=== PATIENT | male | born 1950 | race Caucasian/White ===

== ENCOUNTER 2019-02-04 18:09 | Emergency (ER) | payer MEDICARE ==
[~2019-02-04] VITALS: Ht 177.8 cm; Wt 97.5 kg
--- NOTE | 2019-02-04 18:58 | RAD ---
PORTABLE CHEST 1V History: Chest pain Comparison: None. Findings: Single view of the chest is submitted. There is no infiltrate, pneumothorax, or effusion. The pericardial cardiac silhouette is within normal limits in size. There is some atherosclerotic calcification near the aortic arch. Impression: 1. No acute radiographic abnormality is identified. Electronically signed by: Keo Watkins MD (02/04/2019 6:56 PM) [facility]
[2019-02-04 19:08] LABS: BASO # 0.1 x10^3/uL (0.0-0.2); BASO % 1 % (0-3); EOS # 0.3 x10^3/uL (0.0-0.7); EOS % 4 % (0-3); HEMATOCRIT 33.7 % (39.0-53.0); HEMOGLOBIN 11.3 g/dL (13.0-17.5); LYMPH # 1.6 x10^3/uL (1.0-4.8); LYMPH % 19 % (24-48); MEAN CORPUSCULAR HEMOGLOBIN 32 pg (25-35); MEAN CORPUSCULAR HGB CONC 34 g/dL (31-37); MEAN CORPUSCULAR VOLUME 96 fL (79-100); MONO # 0.8 x10^3/uL (0.0-1.1); MONO % 9 % (0-9); NEUT # 5.7 x10^3/uL (1.8-7.7); NEUT % 67 % (31-73); PLATELET COUNT 263 x10^3/uL (140-400); RED BLOOD COUNT 3.51 x10^6/uL (4.30-5.70); RED CELL DISTRIBUTION WIDTH 13.5 % (11.5-14.5); WHITE BLOOD COUNT 8.6 x10^3/uL (4.0-11.0)
[2019-02-04 19:16] LABS: PROTHROMBIN TIME PATIENT 12.8 SEC (11.7-14.0)
[2019-02-04 19:19] LABS: CALCIUM 9.1 mg/dL (8.5-10.1); CREATININE 0.9 mg/dL (0.7-1.3); GFR 83.9; POTASSIUM 4.3 mmol/L (3.5-5.1)
[2019-02-04 19:25] LABS: ALBUMIN 3.5 g/dL (3.4-5.0); TOTAL BILIRUBIN 0.4 mg/dL (0.2-1.0); TOTAL PROTEIN 7.1 g/dL (6.4-8.2)
--- NOTE | 2019-02-04 19:58 | PHYS DOC ---
Past Medical History Past Medical History: Anemia, Anxiety, COPD, High Cholesterol, Hypertension Additional Past Medical Histor: schizoaffective disorder, sleep apnea, PTSD, parkinsons Additional Past Surgical Histo: unknown Adult General Chief Complaint Chief Complaint: CHEST PAIN HPI HPI Patient is a 69 year old male resident of care home with dementia and schizophrenia and bed ridden condition presents via EMS because of chest pain. [facility] reported that patient complaining of chest pain while sitting at the dinner. EMS reported patient denied chest pain and patient but looked confused for him even he doesn't know his baseline condition. [facility] staff reported that patient is not alert and oriented usual and only is oriented �1 and did not have change of mental condition today. Patient denies chest pain at arrival to ER and agitated and refused to have evaluation. Review of Systems Review of Systems Unable to obtain Allergies Allergies Allergies Coded Allergies Type Severity Reaction Last Updated Verified No Known Drug Allergies 02/04/19 No Physical Exam Physical Exam Constitutional: Well nourished, mild distress, non-toxic appearance, agitated. [] HENT: Normocephalic, atraumatic. Eyes: PERRLA, EOMI, conjunctiva normal, no discharge. [] Neck: Normal range of motion, no tenderness, supple, no stridor. [] Cardiovascular:Heart rate regular rhythm, no murmur [] Lungs & Thorax: Bilateral breath sounds clear to auscultation [] Abdomen: Bowel sounds normal, soft, no tenderness, no masses, no pulsatile masses. [] Skin: Warm, dry, no erythema, no rash. [] Back: No tenderness, no CVA tenderness. [] Extremities: No tenderness, no cyanosis, no clubbing, ROM intact, no edema. [] Neurologic: Alert and oriented X 1, moves all extremities Psychologic: Unable to evaluate Current Patient Data Vital Signs Vital Signs Date Time Temp Pulse Resp B/P (MAP) Pulse Ox O2 Delivery O2 Flow Rate FiO2 02/04/19 20:11 99 18 175/92 (119) 96 Room Air 02/04/19 18:37 97.9 97.9 Lab Values Laboratory Tests Test 02/04/19 18:58 White Blood Count 8.6 x10^3/uL (4.0-11.0) Red Blood Count 3.51 x10^6/uL (4.30-5.70) L Hemoglobin 11.3 g/dL (13.0-17.5) L Hematocrit 33.7 % (39.0-53.0) L Mean Corpuscular Volume 96 fL (79-100) Mean Corpuscular Hemoglobin 32 pg (25-35) Mean Corpuscular Hemoglobin Concent 34 g/dL (31-37) Red Cell Distribution Width 13.5 % (11.5-14.5) Platelet Count 263 x10^3/uL (140-400) Neutrophils (%) (Auto) 67 % (31-73) Lymphocytes (%) (Auto) 19 % (24-48) L Monocytes (%) (Auto) 9 % (0-9) Eosinophils (%) (Auto) 4 % (0-3) H Basophils (%) (Auto) 1 % (0-3) Neutrophils # (Auto) 5.7 x10^3/uL (1.8-7.7) Lymphocytes # (Auto) 1.6 x10^3/uL (1.0-4.8) Monocytes # (Auto) 0.8 x10^3/uL (0.0-1.1) Eosinophils # (Auto) 0.3 x10^3/uL (0.0-0.7) Basophils # (Auto) 0.1 x10^3/uL (0.0-0.2) Prothrombin Time 12.8 SEC (11.7-14.0) Prothrombin Time INR 1.0 (0.8-1.1) Sodium Level 144 mmol/L (136-145) Potassium Level 4.3 mmol/L (3.5-5.1) Chloride Level 105 mmol/L (98-107) Carbon Dioxide Level 28 mmol/L (21-32) Anion Gap 11 (6-14) Blood Urea Nitrogen 25 mg/dL (8-26) Creatinine 0.9 mg/dL (0.7-1.3) Estimated GFR (Cockcroft-Gault) 83.9 BUN/Creatinine Ratio 28 (6-20) H Glucose Level 117 mg/dL (70-99) H Calcium Level 9.1 mg/dL (8.5-10.1) Magnesium Level 2.0 mg/dL (1.8-2.4) Total Bilirubin 0.4 mg/dL (0.2-1.0) Aspartate Amino Transferase (AST) 15 U/L (15-37) Alanine Aminotransferase (ALT) 8 U/L (16-63) L Alkaline Phosphatase 74 U/L (46-116) Creatine Kinase 96 U/L (39-308) Troponin I Quantitative < 0.017 ng/mL (0.000-0.055) CR-Mhm-D-Type Natriuretic Peptide 41 pg/mL (0-124) Total Protein 7.1 g/dL (6.4-8.2) Albumin 3.5 g/dL (3.4-5.0) Albumin/Globulin Ratio 1.0 (1.0-1.7) Lipase 98 U/L (73-393) Laboratory Tests 02/04/19 18:58 Laboratory Tests 02/04/19 18:58 EKG EKG EKG interpreted by me. EKG at 1835 showed multiple artifact without acute ST and T-wave elevation. Radiology/Procedures Radiology/Procedures [facility] [address] [place] [address] IMAGING REPORT Signed PATIENT: SAMM PHELAN ACCOUNT: [id number] : 1950 LOCATION: ER AGE: 69 SEX: M EXAM STATUS: PRE ER ORD. PHYSICIAN: NE PEÑA MD REASON: CHEST PAIN PROCEDURE: PORTABLE CHEST 1V PORTABLE CHEST 1V History: Chest pain Comparison: None. Findings: Single view of the chest is submitted. There is no infiltrate, pneumothorax, or effusion. The pericardial cardiac silhouette is within normal limits in size. There is some atherosclerotic calcification near the aortic arch. Impression: 1. No acute radiographic abnormality is identified. Electronically signed by: Archana Bowman MD (02/04/2019 6:56 PM) [facility] DICTATED and SIGNED BY: ARCHANA BOWMAN MD DATE: 02/04/191855 Course & Med Decision Making Course & Med Decision Making Pertinent Labs and Imaging studies reviewed. (See chart for details) Evaluation of patient in ER showed 69-year-old bed ridden male patient with d ementia and schizophrenia disorientation brought in by EMS because of episodes of chest pain while eating dinner that resolved after a few minutes. Patient denies chest pain. Patient had limited history and exam because of mental condition. Cardiac enzyme was unremarkable and EKG did not show acute finding. Plan discharge patient care home. Heart score was 3. Patient had elevation of blood pressure because of movement and fighting with the blood pressure cuff but finally had a normal blood pressure while did not moving. Dragon Disclaimer Dragon Disclaimer This electronic medical record was generated, in whole or in part, using a voice recognition dictation system. Departure Departure Impression: Primary Impression: Non-cardiac chest pain Disposition: HOME, SELF-CARE (nursing at 1957) Condition: IMPROVED Referrals: JONH LLOYD MD (PCP) Patient Instructions: Chest Pain (Nonspecific) Additional Instructions: Continue current medication Follow-up with your primary care physician in 2-3 days Return to ER if not getting better The HEART Score for CP Pts HEART Score for Chest Pain: HEART Score for Chest Pain Response (Comments) Value History Slighlty/Non-Suspicious 0 ECG Normal 0 Age > 65 2 Risk Factors 1 or 2 Risk Factors 1 Troponin < Normal Limit 0 Total 3 Risk Factors: Risk Factors: DM, Current or recent (<one month) smoker, HTN, HLP, family history of CAD, obesity. Risk Scores: Score 0 - 3: 2.5% MACE over next 6 weeks - Discharge Home Score 4 - 6: 20.3% MACE over next 6 weeks - Admit for Clinical Observation Score 7 - 10: 72.7% MACE over next 6 weeks - Early Invasive Strategies NE PEÑA MD Feb 04, 2019 19:58
[2019-02-04 20:11] VITALS: BP 175/92
--- NOTE | 2019-02-05 06:57 | EKG ---
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
== END 2019-02-04 21:30 | disposition home or self-care (01) ==
LOC: ER 18:09
DX: R07.89 Other chest pain (principal); R41.0 Disorientation, unspecified; J44.9 Chronic obstructive pulmonary disease, unspecified; E78.00 Pure hypercholesterolemia, unspecified; I10 Essential (primary) hypertension
CPT/HCPCS: 36415; 71045; 80053; 82550; 83690; 83735; 83880; 84484; 85025; 85610; 93005; 99285-25

== ENCOUNTER 2019-04-27 12:42 | Inpatient (IN) | payer MEDICARE ==
[~2019-04-27] VITALS: Ht 177.8 cm; Wt 92.6 kg
--- NOTE | 2019-04-27 12:58 | RAD ---
EXAM: CT HEAD WITHOUT CONTRAST. HISTORY: Code stroke. Weakness. TECHNIQUE: Computed tomography of the head was performed without intravenous contrast. *One or more of the following individualized dose reduction techniques were utilized for this examination: 1. Automated exposure control. 2. Adjustment of the mA and/or kV according to patient size. 3. Use of iterative reconstruction technique. COMPARISON: None. FINDINGS: There is no intracranial hemorrhage. There is a chronic infarct in the left posterior temporal lobe. Another is noted within the anterior limb of the right internal capsule. A third is noted in the right parietal lobe. There is mild to moderate chronic microangiopathic white matter change elsewhere. Prominence of the lateral ventricles and hemispheric sulci indicates moderate atrophy. There is moderate mucosal thickening in the ethmoid air cells. There is a chronic left medial orbital wall blowout fracture. There are changes of bilateral cataract surgery. There is a small amount of fluid in the right mastoid air cells. The calvarium reveals no suspicious lesions. There are atherosclerotic calcifications of the internal carotid and vertebral arteries. IMPRESSION: 1. No intracranial hemorrhage. 2. Multiple chronic infarcts as detailed above. Moderate atrophy. These findings were called to Dr. Pillai by Brad Richards on 04/27/2019 at 12:51 PM. FOR INTERNAL CODING PURPOSES RESULT CODE: (C) Electronically signed by: Martine Richards MD (04/27/2019 12:55 PM) [facility]
[2019-04-27] MEDS ORDERED: IOHEXOL 350 MG/ML 100 ML VIAL. IV ONE (13:15)
[2019-04-27 13:17] LABS: HEMATOCRIT 36.3 % (39.0-53.0); RED BLOOD COUNT 3.84 x10^6/uL (4.30-5.70); RED CELL DISTRIBUTION WIDTH 15.3 % (11.5-14.5); WHITE BLOOD COUNT 5.6 x10^3/uL (4.0-11.0)
[2019-04-27 13:28] LABS: PROTHROMBIN TIME PATIENT 12.8 SEC (11.7-14.0)
[2019-04-27] MEDS ORDERED: fentaNYL PF VIAL 100 MCG/2 ML VIAL IVP ONE (13:30)
--- NOTE | 2019-04-27 13:36 | PHYS DOC ---
Past Medical History Past Medical History: Anemia, Anxiety, COPD, High Cholesterol, Hypertension Additional Past Medical Histor: schizoaffective disorder, sleep apnea, PTSD, parkinsons Additional Past Surgical Histo: unknown Alcohol Use: None Additional Information: UNKNOWN ALCOHOL/DRUG USE Drug Use: None Adult General Chief Complaint Chief Complaint: NEURO SYMPTOMS/DEFICITS [facility] HPI Patient is a 69 year old male patient resident of group home with history of hypertension, dyslipidemia, Parkinson's, schizophrenia and anxiety who presents by EMS with complaining of weakness. prison reported that patient was seen at 1200 and was alert and oriented times 4 like his usual condition and about 12:15 had left-sided weakness and slurred speech. Code stroke was activated at arrival of patient. Patient is a poor historian and complaining of bilateral leg pain. Review of Systems Review of Systems Constitutional: Denies fever or chills [] Eyes: Denies change in visual acuity, redness, or eye pain [] HENT: Denies nasal congestion or sore throat [] Respiratory: Denies cough or shortness of breath [] Cardiovascular: No additional information not addressed in HPI [] GI: Denies abdominal pain, nausea, vomiting, bloody stools or diarrhea [] : Denies dysuria or hematuria [] Musculoskeletal: Denies back pain, reports joint pain [] Integument: Denies rash or skin lesions [] Neurologic: Denies headache, focal weakness or sensory changes [] Endocrine: Denies polyuria or polydipsia [] All other systems were reviewed and found to be within normal limits, except as documented in this note. Current Medications Current Medications Allergies Allergies Allergies Coded Allergies Type Severity Reaction Last Updated Verified No Known Drug Allergies 02/04/19 No Physical Exam Physical Exam Constitutional: Well nourished, mild distress, non-toxic appearance. [] HENT: Normocephalic, atraumatic. Eyes: PERRLA, EOMI, conjunctiva normal, no discharge. [] Neck: Normal range of motion, no tenderness, supple, no stridor. [] Cardiovascular:Heart rate regular rhythm, no murmur [] Lungs & Thorax: Bilateral breath sounds clear to auscultation [] Abdomen: Bowel sounds normal, soft, no tenderness, no masses, no pulsatile masses. [] Skin: Warm, dry, no erythema, no rash. [] Back: No tenderness, no CVA tenderness. [] Extremities: Holding bilateral lower extremity in semi-flexion and refused to extend them. Neurologic: Alert and oriented X 2, NIHS-15 Psychologic: Anxious Current Patient Data Vital Signs Lab Values Laboratory Tests Test 04/27/19 12:56 White Blood Count 5.6 x10^3/uL (4.0-11.0) Red Blood Count 3.84 x10^6/uL (4.30-5.70) L Hemoglobin 12.0 g/dL (13.0-17.5) L Hematocrit 36.3 % (39.0-53.0) L Mean Corpuscular Volume 95 fL (79-100) Mean Corpuscular Hemoglobin 31 pg (25-35) Mean Corpuscular Hemoglobin Concent 33 g/dL (31-37) Red Cell Distribution Width 15.3 % (11.5-14.5) H Platelet Count 222 x10^3/uL (140-400) Prothrombin Time 12.8 SEC (11.7-14.0) Prothrombin Time INR 1.0 (0.8-1.1) Activated Partial Thromboplast Time 32 SEC (24-38) Sodium Level 141 mmol/L (136-145) Potassium Level 3.9 mmol/L (3.5-5.1) Chloride Level 105 mmol/L (98-107) Carbon Dioxide Level 27 mmol/L (21-32) Anion Gap 9 (6-14) Blood Urea Nitrogen 18 mg/dL (8-26) Creatinine 1.1 mg/dL (0.7-1.3) Estimated GFR (Cockcroft-Gault) 66.6 Glucose Level 113 mg/dL (70-99) H Calcium Level 9.0 mg/dL (8.5-10.1) Total Bilirubin 0.2 mg/dL (0.2-1.0) Direct Bilirubin 0.1 mg/dL (0.0-0.2) Aspartate Amino Transferase (AST) 11 U/L (15-37) L Alanine Aminotransferase (ALT) 7 U/L (16-63) L Alkaline Phosphatase 62 U/L (46-116) Creatine Kinase 61 U/L (39-308) WV-Hko-C-Type Natriuretic Peptide 57 pg/mL (0-124) Total Protein 6.3 g/dL (6.4-8.2) L Albumin 3.4 g/dL (3.4-5.0) Laboratory Tests 04/27/19 12:56 Laboratory Tests 04/27/19 12:56 EKG EKG EKG interpreted by me. EKG at 1311 showed normal sinus rhythm at rate of 71, normal DE and QT intervals, no acute ST and T-wave abnormalities. Radiology/Procedures Radiology/Procedures [][facility] [address] [place] [address] IMAGING REPORT Signed PATIENT: SAMM PHELANOUNT: [id number] : 1950 LOCATION: ER AGE: 69 SEX: M EXAM STATUS: PRE ER ORD. PHYSICIAN: NE PEÑA MD REASON: weakness PROCEDURE: CT CODE STROKE HEAD WO EXAM: CT HEAD WITHOUT CONTRAST. HISTORY: Code stroke. Weakness. TECHNIQUE: Computed tomography of the head was performed without intravenous contrast. *One or more of the following individualized dose reduction techniques were utilized for this examination: 1. Automated exposure control. 2. Adjustment of the mA and/or kV according to patient size. 3. Use of iterative reconstruction technique. COMPARISON: None. FINDINGS: There is no intracranial hemorrhage. There is a chronic infarct in the left posterior temporal lobe. Another is noted within the anterior limb of the right internal capsule. A third is noted in the right parietal lobe. There is mild to moderate chronic microangiopathic white matter change elsewhere. Prominence of the lateral ventricles and hemispheric sulci indicates moderate atrophy. There is moderate mucosal thickening in the ethmoid air cells. There is a chronic left medial orbital wall blowout fracture. There are changes of bilateral cataract surgery. There is a small amount of fluid in the right mastoid air cells. The calvarium reveals no suspicious lesions. There are atherosclerotic calcifications of the internal carotid and vertebral arteries. IMPRESSION: 1. No intracranial hemorrhage. 2. Multiple chronic infarcts as detailed above. Moderate atrophy. These findings were called to Dr. Peña by Brad Richards on 04/27/2019 at 12:51 PM. FOR INTERNAL CODING PURPOSES RESULT CODE: (C) Electronically signed by: Martine Richards MD (04/27/2019 12:55 PM) [facility] DICTATED and SIGNED BY: CHAPO RICHARDS MD DATE: 04/27/19 8802 [facility] [address] [place] [address] IMAGING REPORT Signed PATIENT: SAMM PHELANOUNT: [id number] : 1950 LOCATION: ER AGE: 69 SEX: M EXAM STATUS: REG ER ORD. PHYSICIAN: NE PEÑA MD REASON: weakness PROCEDURE: CT ANGIOGRAPHY HEAD AND NECK EXAM: 1. CTA HEAD WITH AND WITHOUT CONTRAST. 2. CTA NECK WITH AND WITHOUT CONTRAST. HISTORY: Weakness, altered mental status. TECHNIQUE: Computed tomographic angiography of the head and neck was performed before and after the intravenous administration of 75 mL Omnipaque 350. Three-dimensional reconstructions were also performed. COMPARISON: Today's head CT. FINDINGS: Angiographic findings: The aortic arch has a typical branching pattern. There is no arch vessel stenosis. Predominately uncalcified plaquing at the left carotid bulb extends to the origin of the left internal carotid artery where it results in 60% stenosis and is also. There is no right common carotid stenosis. There are mild to moderate atherosclerotic calcifications at the right carotid bulb. There is no cervical internal carotid artery stenosis more distally bilaterally. The external carotid systems are patent. Severe stenosis is suspected at the origin of the left vertebral artery versus artifact. There are mild atherosclerotic calcifications along the left distal vertebral artery at the foramen magnum. No other vertebral stenosis is appreciated bilaterally. The basilar artery is relatively small. There are dual supply to both posterior cerebral arteries which are patent. The P1 segments are small and the posterior communicating arteries prominent. There are atherosclerotic calcifications and moderate atherosclerotic irregularity along the left greater than right cavernous internal carotid arteries without significant stenosis. There appears to be a severe stenosis along one of appears to be inferior left M2 segment. There is multifocal mild to moderate atherosclerotic irregularity along the left M3 segments. The right anterior cerebral artery is dominant and the left relatively small. Both appear patent. The anterior communicating artery is not well-visualized. Nonangiographic findings: There is no intracranial hemorrhage. 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 Prominence of the lateral ventricles and hemispheric sulci indicate mild atrophy. There is moderate mucosal thickening in the ethmoid air cells. There are small mucus retention cysts in the left maxillary sinus. There are changes of bilateral cataract surgery. The temporal bones are unremarkable. Bone windows reveal no suspicious lesions. The lung apices demonstrate an uncalcified nodule in the left apex measures 5 mm. There are multiple bilateral pulmonary emboli. The parotid glands and submandibular glands are unremarkable. The thyroid gland demonstrates no suspicious lesions. There are no laryngeal or pharyngeal masses. There are no pathologically enlarged lymph nodes. IMPRESSION: 1. Multiple bilateral pulmonary emboli are partially visualized. 2. Ulcerated uncalcified plaquing results in 60% stenosis at the origin of the left cervical internal carotid artery. 3. Severe stenosis of what appears to be the inferior left M2 segment. This appears chronic rather than acute. There is multifocal mild to moderate atherosclerotic irregularity along the left M3 segments. 4. There appears to be severe stenosis at the origin of the left vertebral artery versus artifact. Both vertebral arteries are patent more distally. 5. 5 mm left apical nodule, indeterminate. This could be followed in one year if there are risk factors. These findings were called to Dr. Peña by Brad Richards on 04/27/2019 at 1:50 PM. PQRS Compliance Statement - Stenosis calculations for CT, MR and conventional angiography are based upon measurement of the distal ICA diameter in accordance with the NASCET methodology. Stenosis calculations for carotid ultrasound studies are derived from validated velocity criteria which are known to correlate with the NASCET methodology. *One or more of the following individualized dose reduction techniques were utilized for this examination: 1. Automated exposure control. 2. Adjustment of the mA and/or kV according to patient size. 3. Use of iterative reconstruction technique. FOR INTERNAL CODING PURPOSES RESULT CODE: (C) Electronically signed by: Martine Richards MD (04/27/2019 2:02 PM) [facility] DICTATED and SIGNED BY: CHAPO RICHARDS MD DATE: 04/27/19 1401 Course & Med Decision Making Course & Med Decision Making Pertinent Labs and Imaging studies reviewed. (See chart for details) Evaluation of patient in ER showed 69-year-old male patient with history of schizophrenia brought in because of left-sided weakness. Patient was able to move his left upper extremity without problem but refused to move his bilateral lower extremity and had NIHS of 15 was not look real deficit. On-call neurologist Dr. Burris was consulted at 1301 and agreed with not giving TPA. CT angio head and neck did not show acute finding in the brain but showed bilateral PE. Patient did not have hypoxia.Patient requiring admission for further evaluation and treatment. Discussed with Dr. Rowe who is in agreement with admission. Discussed findings and plan with patient and family, who acknowledge understanding and agreement. Dragon Disclaimer Dragon Disclaimer This electronic medical record was generated, in whole or in part, using a voice recognition dictation system. Departure Departure Impression: Primary Impression: Bilateral pulmonary embolism Additional Impressions: Bilateral lower extremity pain Schizophrenia Disposition: ADMITTED INPATIENT Admitting Physician: DONOVAN Condition: GUARDED Referrals: JONH LLOYD MD (PCP) NIHSS Stroke Scale NIH Stroke Scale: NIH Stroke Scale Response (Comments) Value Level of Consciousness: 1 Not alert/arousable 1 LOC Questions: 1 Answers one correctly 1 LOC Commands: 2 Perform neither task 2 Best Gaze: 0 Normal 0 Visual: 0 No visual loss 0 Facial Palsy: 0 Normal, symmetrical 0 Motor - Left Arm 0 No drift 0 Motor - Right Arm 0 No drift 0 Motor - Left Leg 3 Limb falls 3 Motor: Right Leg 3 Limb falls 3 Limb Ataxia: 1 One limb 1 Sensory: 0 No loss 0 Best Language: 2 Severe aphasia 2 Dysathria: 2 Severe 2 Extinction and Inattention: 0 Normal 0 Total 15 Critical Care Time Critical care time was 70 minutes exclusive of procedures. Problem Qualifiers Additional Impressions: Schizophrenia Schizophrenia type: unspecified Qualified Codes: F20.9 - Schizophrenia, unspecified NE PEÑA MD Apr 27, 2019 13:36
[2019-04-27 13:39] LABS: ALBUMIN 3.4 g/dL (3.4-5.0); CREATININE 1.1 mg/dL (0.7-1.3); DIRECT BILIRUBIN 0.1 mg/dL (0.0-0.2); GFR 66.6; POTASSIUM 3.9 mmol/L (3.5-5.1); TOTAL BILIRUBIN 0.2 mg/dL (0.2-1.0); TOTAL PROTEIN 6.3 g/dL (6.4-8.2)
[2019-04-27] MEDS ORDERED: CONTRAST GIVEN. MC PRN (13:45)
--- NOTE | 2019-04-27 13:49 | EKG ---
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
--- NOTE | 2019-04-27 14:05 | RAD ---
EXAM: 1. CTA HEAD WITH AND WITHOUT CONTRAST. 2. CTA NECK WITH AND WITHOUT CONTRAST. HISTORY: Weakness, altered mental status. TECHNIQUE: Computed tomographic angiography of the head and neck was performed before and after the intravenous administration of 75 mL Omnipaque 350. Three-dimensional reconstructions were also performed. COMPARISON: Today's head CT. FINDINGS: Angiographic findings: The aortic arch has a typical branching pattern. There is no arch vessel stenosis. Predominately uncalcified plaquing at the left carotid bulb extends to the origin of the left internal carotid artery where it results in 60% stenosis and is also. There is no right common carotid stenosis. There are mild to moderate atherosclerotic calcifications at the right carotid bulb. There is no cervical internal carotid artery stenosis more distally bilaterally. The external carotid systems are patent. Severe stenosis is suspected at the origin of the left vertebral artery versus artifact. There are mild atherosclerotic calcifications along the left distal vertebral artery at the foramen magnum. No other vertebral stenosis is appreciated bilaterally. The basilar artery is relatively small. There are dual supply to both posterior cerebral arteries which are patent. The P1 segments are small and the posterior communicating arteries prominent. There are atherosclerotic calcifications and moderate atherosclerotic irregularity along the left greater than right cavernous internal carotid arteries without significant stenosis. There appears to be a severe stenosis along one of appears to be inferior left M2 segment. There is multifocal mild to moderate atherosclerotic irregularity along the left M3 segments. The right anterior cerebral artery is dominant and the left relatively small. Both appear patent. The anterior communicating artery is not well-visualized. Nonangiographic findings: There is no intracranial hemorrhage. 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 Prominence of the lateral ventricles and hemispheric sulci indicate mild atrophy. There is moderate mucosal thickening in the ethmoid air cells. There are small mucus retention cysts in the left maxillary sinus. There are changes of bilateral cataract surgery. The temporal bones are unremarkable. Bone windows reveal no suspicious lesions. The lung apices demonstrate an uncalcified nodule in the left apex measures 5 mm. There are multiple bilateral pulmonary emboli. The parotid glands and submandibular glands are unremarkable. The thyroid gland demonstrates no suspicious lesions. There are no laryngeal or pharyngeal masses. There are no pathologically enlarged lymph nodes. IMPRESSION: 1. Multiple bilateral pulmonary emboli are partially visualized. 2. Ulcerated uncalcified plaquing results in 60% stenosis at the origin of the left cervical internal carotid artery. 3. Severe stenosis of what appears to be the inferior left M2 segment. This appears chronic rather than acute. There is multifocal mild to moderate atherosclerotic irregularity along the left M3 segments. 4. There appears to be severe stenosis at the origin of the left vertebral artery versus artifact. Both vertebral arteries are patent more distally. 5. 5 mm left apical nodule, indeterminate. This could be followed in one year if there are risk factors. These findings were called to Dr. Pillai by Brad Richards on 04/27/2019 at 1:50 PM. RS Compliance Statement - Stenosis calculations for CT, MR and conventional angiography are based upon measurement of the distal ICA diameter in accordance with the NASCET methodology. Stenosis calculations for carotid ultrasound studies are derived from validated velocity criteria which are known to correlate with the NASCET methodology. *One or more of the following individualized dose reduction techniques were utilized for this examination: 1. Automated exposure control. 2. Adjustment of the mA and/or kV according to patient size. 3. Use of iterative reconstruction technique. FOR INTERNAL CODING PURPOSES RESULT CODE: (C) Electronically signed by: Martine Richards MD (04/27/2019 2:02 PM) [facility]
--- NOTE | 2019-04-27 14:26 | RAD ---
PORTABLE CHEST 1V Clinical Indication: Pulmonary embolus. Comparison: AP chest February 04, 2019. Findings: Atherosclerotic aortic arch. The cardiomediastinal silhouette is normal. Lungs are clear. There is no pneumothorax. No pleural effusion is appreciated. No acute bone abnormality. IMPRESSION: No acute cardiopulmonary process. Electronically signed by: Thomas Crain MD (04/27/2019 2:24 PM) [id number]
[2019-04-27] MEDS ORDERED: ACETAMINOPHEN 500 MG TABLET PO PRN (14:30)
[2019-04-27] MEDS ORDERED: HEPARIN for IV BOLUS 10,000 UNIT/10 ML VIAL. IV PRN (14:30)
[2019-04-27] MEDS ORDERED: ACETAMINOPHEN/CODEINE 300/30MG TABLET. PO PRN (14:30)
[2019-04-27] MEDS ORDERED: MORPHINE SULFATE 2 MG/ML VIAL. IV PRN (14:30)
[2019-04-27] MEDS ORDERED: ANTI-COAG MONITOR BY PHARMACY. MC PRN (14:30)
[2019-04-27] MEDS ORDERED: ONDANSETRON PF 4 MG/2 ML VIAL. IVP PRN (14:30)
[2019-04-27] MEDS ORDERED: HEPARIN for IV BOLUS 10,000 UNIT/10 ML VIAL. IV ONE (15:15)
--- NOTE | 2019-04-27 15:17 | PDOC1 ---
History and Physical Date of Admission Date of Admission DATE: 04/27/19 TIME: 15:07 Identification/Chief Complaint Chief Complaint slurred speech, stroke like sxs, weak left side body Source Source: Caregiver, Chart review, Patient History of Present Illness History of Present Illness HE [facility] and is not [facility] and is alone at ER. Sent by[facility] of stroke like sxs namely slurred speech, left UE and LLE weakness, last seen normal 12:00, arrived ER via EMS 12:15. NEuro consulted,. CT head ok,advised CT angio head neck and that showed maybe an old stroke and some calcification or blockages but with good col;laterals. BUT THERE IS INCIDENTAL MULITIPLE BILATERAL PE. HE claims no hx PE to me, claims not on any blood thinners but im awaiting med list from [facility] IMPRESSION: 1. Multiple bilateral pulmonary emboli are partially visualized. 2. Ulcerated uncalcified plaquing results in 60% stenosis at the origin of the left cervical internal carotid artery. 3. Severe stenosis of what appears to be the inferior left M2 segment. This appears chronic rather than acute. There is multifocal mild to moderate atherosclerotic irregularity along the left M3 segments. 4. There appears to be severe stenosis at the origin of the left vertebral artery versus artifact. Both vertebral arteries are patent more distally. 5. 5 mm left apical nodule, indeterminate. This could be followed in one year if there are risk factors. He did have hypoxia on arrival. HE did not complain of signif SOA,. We are admitting PCU bed, I advsied heparin gtt with echo and pulmo consult and neuro- he is able to move all 4s for me, and seems less slurred,. 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 Past Medical History Past Medical History waiting on home meds to get past medical hx Past Surgical History Past Surgical History: Other (unable to tell me) Family History Family History: Family History Unknown Social History Smoke: No ALCOHOL: none Drugs: None Current Medications Current Medications Current Medications Iohexol (Omnipaque 350 Mg/ml) 75 ml 1X ONCE IV ; Start 04/27/19 at 13:15; Stop 04/27/19 at 13:16; Status DC Fentanyl Citrate (Fentanyl 2ml Vial) 50 mcg 1X ONCE IVP ; Start 04/27/19 at 13:30; Stop 04/27/19 at 13:31; Status DC Info (CONTRAST GIVEN -- Rx MONITORING) 1 each PRN DAILY PRN MC SEE COMMENTS; Start 04/27/19 at 13:45; Stop 04/29/19 at 13:44 Enoxaparin Sodium (Lovenox 100mg Syringe) 100 mg 1X ONCE SQ ; Start 04/27/19 at 14:15; Stop 04/27/19 at 14:17; Status DC Heparin Sodium/ Dextrose 500 ml @ 30.08 mls/ hr CONT PRN IV SEE COMMENTS; Start 04/27/19 at 14:30 Heparin Sodium (Porcine) (Heparin Sodium) 2,800 unit PRN Q6HRS PRN IV FOR UFH LEVEL LESS THAN 0.2; Start 04/27/19 at 14:30 Heparin Sodium (Porcine) (Heparin Sodium) 1,400 unit PRN Q6HRS PRN IV FOR UFH LEVEL 0.2 - 0.29; Start 04/27/19 at 14:30 Acetaminophen (Tylenol) 500 mg PRN Q6HRS PRN PO MILD PAIN / TEMP; Start 04/27/19 at 14:30 Acetaminophen/ Codeine Phosphate (Tylenol #3) 1 tab PRN Q6HRS PRN PO PAIN MILD TO MOD; Start 04/27/19 at 14:30 Ondansetron HCl (Zofran) 4 mg PRN Q6HRS PRN IVP NAUSEA/VOMITING; Start 04/27/19 at 14:30 Morphine Sulfate (Morphine Sulfate) 2 mg PRN Q2HR PRN IV PAIN; Start 04/27/19 at 14:30 Sodium Chloride 1,000 ml @ 75 mls/hr [id number] IV ; Start 04/27/19 at 14:30 Info (Anti-Coagulation Monitoring By Pharmacy) 1 each PRN DAILY PRN MC SEE COMMENTS; Start 04/27/19 at 14:30 Allergies Allergies: Coded Allergies: No Known Drug Allergies (Unverified , 02/04/19) ROS Review of System limited,w eak, confused, but calm Physical Exam General: Alert, Oriented X3, Cooperative, No acute distress HEENT: Atraumatic, PERRLA, EOMI Lungs: Normal air movement, Other (equal air entry, no crackles, wheezing) Heart: S1S2, RRR, no thrills, no rubs, no gallops, no murmurs Cardiovascular: S1, S2 Abdomen: Normal bowel sounds, Soft, No tenderness, No hepatosplenomegaly, No masses Male Genitals Exam: normal genitalia, normal prostate Rectal Exam: not examined PELVIC: Nml ext genitalia Extremities: No clubbing, No cyanosis, No edema, Normal pulses, No tenderness/swelling Skin: No rashes, No breakdown, No significant lesion Neuro: Normal speech, Normal tone, Sensation intact, Cranial nerves 3-12 NL, Reflexes 2+, Other (4/4/ LEFT UE and LLE 3/5, the RT is 5.5) Vitals Vitals Vital Signs Date Time Temp Pulse Resp B/P (MAP) Pulse Ox O2 Delivery O2 Flow Rate FiO2 04/27/19 13:06 97.9 72 19 114/72 (86) 96 Room Air 97.9 Labs Labs Laboratory Tests Test 04/27/19 12:56 White Blood Count 5.6 x10^3/uL (4.0-11.0) Red Blood Count 3.84 x10^6/uL (4.30-5.70) Hemoglobin 12.0 g/dL (13.0-17.5) Hematocrit 36.3 % (39.0-53.0) Mean Corpuscular Volume 95 fL (79-100) Mean Corpuscular Hemoglobin 31 pg (25-35) Mean Corpuscular Hemoglobin Concent 33 g/dL (31-37) Red Cell Distribution Width 15.3 % (11.5-14.5) Platelet Count 222 x10^3/uL (140-400) Prothrombin Time 12.8 SEC (11.7-14.0) Prothromb Time International Ratio 1.0 (0.8-1.1) Activated Partial Thromboplast Time 32 SEC (24-38) Sodium Level 141 mmol/L (136-145) Potassium Level 3.9 mmol/L (3.5-5.1) Chloride Level 105 mmol/L (98-107) Carbon Dioxide Level 27 mmol/L (21-32) Anion Gap 9 (6-14) Blood Urea Nitrogen 18 mg/dL (8-26) Creatinine 1.1 mg/dL (0.7-1.3) Estimated GFR (Cockcroft-Gault) 66.6 Glucose Level 113 mg/dL (70-99) Calcium Level 9.0 mg/dL (8.5-10.1) Total Bilirubin 0.2 mg/dL (0.2-1.0) Direct Bilirubin 0.1 mg/dL (0.0-0.2) Aspartate Amino Transf (AST/SGOT) 11 U/L (15-37) Alanine Aminotransferase (ALT/SGPT) 7 U/L (16-63) Alkaline Phosphatase 62 U/L (46-116) Creatine Kinase 61 U/L (39-308) LR-Dxq-R-Type Natriuretic Peptide 57 pg/mL (0-124) Total Protein 6.3 g/dL (6.4-8.2) Albumin 3.4 g/dL (3.4-5.0) Laboratory Tests Test 04/27/19 12:56 White Blood Count 5.6 x10^3/uL (4.0-11.0) Red Blood Count 3.84 x10^6/uL (4.30-5.70) Hemoglobin 12.0 g/dL (13.0-17.5) Hematocrit 36.3 % (39.0-53.0) Mean Corpuscular Volume 95 fL (79-100) Mean Corpuscular Hemoglobin 31 pg (25-35) Mean Corpuscular Hemoglobin Concent 33 g/dL (31-37) Red Cell Distribution Width 15.3 % (11.5-14.5) Platelet Count 222 x10^3/uL (140-400) Prothrombin Time 12.8 SEC (11.7-14.0) Prothromb Time International Ratio 1.0 (0.8-1.1) Activated Partial Thromboplast Time 32 SEC (24-38) Sodium Level 141 mmol/L (136-145) Potassium Level 3.9 mmol/L (3.5-5.1) Chloride Level 105 mmol/L (98-107) Carbon Dioxide Level 27 mmol/L (21-32) Anion Gap 9 (6-14) Blood Urea Nitrogen 18 mg/dL (8-26) Creatinine 1.1 mg/dL (0.7-1.3) Estimated GFR (Cockcroft-Gault) 66.6 Glucose Level 113 mg/dL (70-99) Calcium Level 9.0 mg/dL (8.5-10.1) Total Bilirubin 0.2 mg/dL (0.2-1.0) Direct Bilirubin 0.1 mg/dL (0.0-0.2) Aspartate Amino Transf (AST/SGOT) 11 U/L (15-37) Alanine Aminotransferase (ALT/SGPT) 7 U/L (16-63) Alkaline Phosphatase 62 U/L (46-116) Creatine Kinase 61 U/L (39-308) NJ-Ibo-J-Type Natriuretic Peptide 57 pg/mL (0-124) Total Protein 6.3 g/dL (6.4-8.2) Albumin 3.4 g/dL (3.4-5.0) VTE Prophylaxis Ordered VTE Prophylaxis Devices: Yes VTE Pharmacological Prophylaxi: Yes Assessment/Plan Assessment/Plan Transient slurred speech Weak left LE > RT LE - NIH 20 at ER MUltiple bilateral PE - new - first episode 60% stenosis left ICA Severe stenosis Left M2, chronic Sever stenosis origin left vertebral Artery vs artifact\ 5 mm apical lung nodule in a non smoker [facility] resident full code PALn: CVC bed heparin gtt Echo Pulmo consult re PE Check venous dopplers r./o DVT NEuro consult 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
[2019-04-27] MEDS: HEPARIN 25,000UTS/500ML PREMIX 500 ML IV PRN (15:32)
[2019-04-27 15:50] VITALS: BP 169/90
--- NOTE | 2019-04-27 15:53 | PDOC2 ---
NEUROLOGY CONSULT Date of Admission Date of Admission DATE: 04/27/19 TIME: 15:45 Reason for Consult Reason for Consult: Weakness Referring Physician Referring Physician: Dr. Rowe Source Source: Chart review, Patient History of Present Illness History of Present Illness The patient is a 69-year-old right-handed male skilled nursing resident who became weak at about noon today. It was thought he had some slurred speech and left- sided weakness. I spoke with Dr. Pillai and we agreed that the symptoms were rather vague and that the patient did not require alteplase. I recommended a CT angiogram which showed incidental multiple pulmonary emboli. The patient does have a diagnosis of Parkinson's. He has no insight into his history. Past Medical History Cardiovascular: HTN, Hyperlipidemia Pulmonary: COPD, Other (sleep apnea) CENTRAL NERVOUS SYSTEM: Other (Parkinson's, dementia) GI: Other (dyspepsia) Heme/Onc: Anemia NOS Psych: Anxiety, Depression, Other (schizoaffective disorder, PTSD, insomnia) Musculoskeletal: Osteoarthritis, Other (right femur aseptic necrosis) Past Surgical History Past Surgical History: No pertinent history Family History Family History: No pertinent hx Social History Social History He says that he is , does not know where he lives, does not use alcohol or tobacco Current Medications Current Medications Current Medications Iohexol (Omnipaque 350 Mg/ml) 75 ml 1X ONCE IV ; Start 04/27/19 at 13:15; Stop 04/27/19 at 13:16; Status DC Fentanyl Citrate (Fentanyl 2ml Vial) 50 mcg 1X ONCE IVP ; Start 04/27/19 at 13:30; Stop 04/27/19 at 13:31; Status DC Info (CONTRAST GIVEN -- Rx MONITORING) 1 each PRN DAILY PRN MC SEE COMMENTS; Start 04/27/19 at 13:45; Stop 04/29/19 at 13:44 Enoxaparin Sodium (Lovenox 100mg Syringe) 100 mg 1X ONCE SQ ; Start 04/27/19 at 14:15; Stop 04/27/19 at 14:17; Status DC Heparin Sodium/ Dextrose 500 ml @ 30.08 mls/ hr CONT PRN IV SEE COMMENTS Last administered on 04/27/19at 15:32; Start 04/27/19 at 14:30 Heparin Sodium (Porcine) (Heparin Sodium) 2,800 unit PRN Q6HRS PRN IV FOR UFH LEVEL LESS THAN 0.2; Start 04/27/19 at 14:30 Heparin Sodium (Porcine) (Heparin Sodium) 1,400 unit PRN Q6HRS PRN IV FOR UFH LEVEL 0.2 - 0.29; Start 04/27/19 at 14:30 Acetaminophen (Tylenol) 500 mg PRN Q6HRS PRN PO MILD PAIN / TEMP; Start at 14:30 Acetaminophen/ Codeine Phosphate (Tylenol #3) 1 tab PRN Q6HRS PRN PO PAIN MILD TO MOD; Start 04/27/19 at 14:30 Ondansetron HCl (Zofran) 4 mg PRN Q6HRS PRN IVP NAUSEA/VOMITING; Start 04/27/19 at 14:30 Morphine Sulfate (Morphine Sulfate) 2 mg PRN Q2HR PRN IV PAIN; Start 04/27/19 at 14:30 Sodium Chloride 1,000 ml @ 75 mls/hr [id number] IV ; Start 04/27/19 at 14:30 Info (Anti-Coagulation Monitoring By Pharmacy) 1 each PRN DAILY PRN MC SEE COMMENTS; Start 04/27/19 at 14:30 Heparin Sodium (Porcine) (Heparin Sodium) 7,500 unit 1X ONCE IV Last administered on 04/27/19at 15:31; Start 04/27/19 at 15:15; Stop 04/27/19 at 15:16; Status DC Allergies Allergies: Coded Allergies: No Known Drug Allergies (Unverified , 02/04/19) ROS Review of System Negative for fever, chills, weight loss, shortness of breath, chest pain, indigestion, hematochezia, melena, and dysuria. Full 14-point review of systems is negative. Physical Exam Physical Examination General: Well-developed, well-nourished white male in no acute distress HEENT: Normocephalic andatraumatic. Tympanic membranes clear.Temporal arteriespulsatile and nontender.Fundoscopic exam unremarkable Neck: Supple without bruit, no meningismus Musculoskeletal: Stability:see neurologic. Gait exam:see neurologic. Tone:see neurologic.Strength:see neurologic. Neurological: Mental Status:intact, orientation, memory, attention span/concentration, language, fund of knowledge: He does not know the date or location, has some trouble with naming and repetition, follow simple commands but not complex. Cranial Nerves:Pupils equal and reactive to light, extraocular movements areintact, visual reyna are full to confrontation. Facial sensation is normal. There is no facial asymmetry. Vestibulo-ocular reflex is intact. Palate elevates and tongue protrudes in midline. All other cranial related problems are negative except as mentioned before.Reflexes:2+ and symmetric with flexor plantar responses. Motor:4/5 strength with normal bulk. There is gegenhalten tone. There is decreased facial expression but no tremor or bradykinesia. Coordination:Finger-nose finger and lbnf-dx-jymn testing are normal. Rapid alternating movements and fine finger movements are intact. Gait:Not tested. Sensory:Normal pinprick, vibration, light touch, proprioception. Vitals VITALS Vital Signs Date Time Temp Pulse Resp B/P (MAP) Pulse Ox O2 Delivery O2 Flow Rate FiO2 04/27/19 13:30 16 Room Air 04/27/19 13:06 97.9 72 114/72 (86) 96 97.9 Labs Labs Laboratory Tests Test 04/27/19 12:56 White Blood Count 5.6 x10^3/uL (4.0-11.0) Red Blood Count 3.84 x10^6/uL (4.30-5.70) Hemoglobin 12.0 g/dL (13.0-17.5) Hematocrit 36.3 % (39.0-53.0) Mean Corpuscular Volume 95 fL (79-100) Mean Corpuscular Hemoglobin 31 pg (25-35) Mean Corpuscular Hemoglobin Concent 33 g/dL (31-37) Red Cell Distribution Width 15.3 % (11.5-14.5) Platelet Count 222 x10^3/uL (140-400) Prothrombin Time 12.8 SEC (11.7-14.0) Prothromb Time International Ratio 1.0 (0.8-1.1) Activated Partial Thromboplast Time 32 SEC (24-38) Sodium Level 141 mmol/L (136-145) Potassium Level 3.9 mmol/L (3.5-5.1) Chloride Level 105 mmol/L (98-107) Carbon Dioxide Level 27 mmol/L (21-32) Anion Gap 9 (6-14) Blood Urea Nitrogen 18 mg/dL (8-26) Creatinine 1.1 mg/dL (0.7-1.3) Estimated GFR (Cockcroft-Gault) 66.6 Glucose Level 113 mg/dL (70-99) Calcium Level 9.0 mg/dL (8.5-10.1) Total Bilirubin 0.2 mg/dL (0.2-1.0) Direct Bilirubin 0.1 mg/dL (0.0-0.2) Aspartate Amino Transf (AST/SGOT) 11 U/L (15-37) Alanine Aminotransferase (ALT/SGPT) 7 U/L (16-63) Alkaline Phosphatase 62 U/L (46-116) Creatine Kinase 61 U/L (39-308) UQ-Btu-Y-Type Natriuretic Peptide 57 pg/mL (0-124) Total Protein 6.3 g/dL (6.4-8.2) Albumin 3.4 g/dL (3.4-5.0) Laboratory Tests Test 04/27/19 12:56 White Blood Count 5.6 x10^3/uL (4.0-11.0) Red Blood Count 3.84 x10^6/uL (4.30-5.70) Hemoglobin 12.0 g/dL (13.0-17.5) Hematocrit 36.3 % (39.0-53.0) Mean Corpuscular Volume 95 fL (79-100) Mean Corpuscular Hemoglobin 31 pg (25-35) Mean Corpuscular Hemoglobin Concent 33 g/dL (31-37) Red Cell Distribution Width 15.3 % (11.5-14.5) Platelet Count 222 x10^3/uL (140-400) Prothrombin Time 12.8 SEC (11.7-14.0) Prothromb Time International Ratio 1.0 (0.8-1.1) Activated Partial Thromboplast Time 32 SEC (24-38) Sodium Level 141 mmol/L (136-145) Potassium Level 3.9 mmol/L (3.5-5.1) Chloride Level 105 mmol/L (98-107) Carbon Dioxide Level 27 mmol/L (21-32) Anion Gap 9 (6-14) Blood Urea Nitrogen 18 mg/dL (8-26) Creatinine 1.1 mg/dL (0.7-1.3) Estimated GFR (Cockcroft-Gault) 66.6 Glucose Level 113 mg/dL (70-99) Calcium Level 9.0 mg/dL (8.5-10.1) Total Bilirubin 0.2 mg/dL (0.2-1.0) Direct Bilirubin 0.1 mg/dL (0.0-0.2) Aspartate Amino Transf (AST/SGOT) 11 U/L (15-37) Alanine Aminotransferase (ALT/SGPT) 7 U/L (16-63) Alkaline Phosphatase 62 U/L (46-116) Creatine Kinase 61 U/L (39-308) NI-Guu-U-Type Natriuretic Peptide 57 pg/mL (0-124) Total Protein 6.3 g/dL (6.4-8.2) Albumin 3.4 g/dL (3.4-5.0) Images Images CT HEAD WITHOUT CONTRAST. HISTORY: Code stroke. Weakness. TECHNIQUE: Computed tomography of the head was performed without intravenous contrast. *One or more of the following individualized dose reduction techniques were utilized for this examination: 1. Automated exposure control. 2. Adjustment of the mA and/or kV according to patient size. 3. Use of iterative reconstruction technique. COMPARISON: None. FINDINGS: There is no intracranial hemorrhage. There is a chronic infarct in the left posterior temporal lobe. Another is noted within the anterior limb of the right internal capsule. A third is noted in the right parietal lobe. There is mild to moderate chronic microangiopathic white matter change elsewhere. Prominence of the lateral ventricles and hemispheric sulci indicates moderate atrophy. There is moderate mucosal thickening in the ethmoid air cells. There is a chronic left medial orbital wall blowout fracture. There are changes of bilateral cataract surgery. There is a small amount of fluid in the right mastoid air cells. The calvarium reveals no suspicious lesions. There are atherosclerotic calcifications of the internal carotid and vertebral arteries. IMPRESSION: 1. No intracranial hemorrhage. 2. Multiple chronic infarcts as detailed above. Moderate atrophy. CTA HEAD WITH AND WITHOUT CONTRAST. 2. CTA NECK WITH AND WITHOUT CONTRAST. HISTORY: Weakness, altered mental status. TECHNIQUE: Computed tomographic angiography of the head and neck was performed before and after the intravenous administration of 75 mL Omnipaque 350. Three-dimensional reconstructions were also performed. COMPARISON: Today's head CT. FINDINGS: Angiographic findings: The aortic arch has a typical branching pattern. There is no arch vessel stenosis. Predominately uncalcified plaquing at the left carotid bulb extends to the origin of the left internal carotid artery where it results in 60% stenosis and is also. There is no right common carotid stenosis. There are mild to moderate atherosclerotic calcifications at the right carotid bulb. There is no cervical internal carotid artery stenosis more distally bilaterally. The external carotid systems are patent. Severe stenosis is suspected at the origin of the left vertebral artery versus artifact. There are mild atherosclerotic calcifications along the left distal vertebral artery at the foramen magnum. No other vertebral stenosis is appreciated bilaterally. The basilar artery is relatively small. There are dual supply to both posterior cerebral arteries which are patent. The P1 segments are small and the posterior communicating arteries prominent. There are atherosclerotic calcifications and moderate atherosclerotic irregularity along the left greater than right cavernous internal carotid arteries without significant stenosis. There appears to be a severe stenosis along one of appears to be inferior left M2 segment. There is multifocal mild to moderate atherosclerotic irregularity along the left M3 segments. The right anterior cerebral artery is dominant and the left relatively small. Both appear patent. The anterior communicating artery is not well-visualized. Nonangiographic findings: There is no intracranial hemorrhage. 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 Prominence of the lateral ventricles and hemispheric sulci indicate mild atrophy. There is moderate mucosal thickening in the ethmoid air cells. There are small mucus retention cysts in the left maxillary sinus. There are changes of bilateral cataract surgery. The temporal bones are unremarkable. Bone windows reveal no suspicious lesions. The lung apices demonstrate an uncalcified nodule in the left apex measures 5 mm. There are multiple bilateral pulmonary emboli. The parotid glands and submandibular glands are unremarkable. The thyroid gland demonstrates no suspicious lesions. There are no laryngeal or pharyngeal masses. There are no pathologically enlarged lymph nodes. IMPRESSION: 1. Multiple bilateral pulmonary emboli are partially visualized. 2. Ulcerated uncalcified plaquing results in 60% stenosis at the origin of the left cervical internal carotid artery. 3. Severe stenosis of what appears to be the inferior left M2 segment. This appears chronic rather than acute. There is multifocal mild to moderate atherosclerotic irregularity along the left M3 segments. 4. There appears to be severe stenosis at the origin of the left vertebral artery versus artifact. Both vertebral arteries are patent more distally. 5. 5 mm left apical nodule, indeterminate. This could be followed in one year if there are risk factors. Assessment/Plan Assessment/Plan Impression: Generalized weakness, I'm really not picking up on anything focal that would show a stroke. Certainly the pulmonary emboli play a role Dementia Diagnosis of Parkinson's disease Multiple psychiatric disorders. Recommendations: Okay for heparin MRI brain on a routine basis, further stroke workup if it shows anything acute. Continue current medications. Thank you for letting me help with the patient's care. MIS GOTTI MD Apr 27, 2019 15:52
[2019-04-27] MEDS ORDERED: POLY2500 PO (16:06)
[2019-04-27] MEDS ORDERED: LISI-130 PO (16:06)
[2019-04-27] MEDS ORDERED: QUET50TA5 PO (16:06)
[2019-04-27] MEDS ORDERED: GABA600T7 PO (16:06)
[2019-04-27] MEDS ORDERED: CARB1TAB5 PO (16:06)
[2019-04-27] MEDS ORDERED: MIRT15TA PO (16:06)
[2019-04-27] MEDS ORDERED: HYDR-3164 PO (16:06)
[2019-04-27] MEDS ORDERED: ACET500T33 PO (16:06)
[2019-04-27] MEDS: IV 1/2 NORMAL SALINE 1,000 ML IV SCH (16:25)
--- NOTE | 2019-04-27 16:34 | RAD ---
EXAM: Bilateral lower extremity venous Doppler. HISTORY: Pulmonary embolism. COMPARISON: Today's chest CT. FINDINGS: Grayscale and Doppler analysis of the both lower extremity deep venous systems was performed with graded compression and augmentation. The common femoral, greater saphenous, superficial femoral, popliteal and calf veins were assessed. There is occlusive thrombus within the right popliteal vein. No other thrombi are seen. The calf veins could not be visualized bilaterally given patient immobility. IMPRESSION: 1. Occlusive thrombus within the right popliteal vein. Dr. Pillai was made aware of deep venous thrombosis at the time of today's prior CT. Electronically signed by: Martine Richards MD (04/27/2019 4:31 PM) [facility]
--- NOTE | 2019-04-27 17:10 | PDOC ---
PULMONARY PROGRESS NOTES Vitals Vital Signs Date Time Temp Pulse Resp B/P (MAP) Pulse Ox O2 Delivery O2 Flow Rate FiO2 04/27/19 15:50 98.0 69 18 169/90 (116) 97 Room Air 98.0 Cardiovascular: S1, S2 Labs Laboratory Tests Test 04/27/19 12:56 White Blood Count 5.6 x10^3/uL (4.0-11.0) Red Blood Count 3.84 x10^6/uL (4.30-5.70) Hemoglobin 12.0 g/dL (13.0-17.5) Hematocrit 36.3 % (39.0-53.0) Mean Corpuscular Volume 95 fL (79-100) Mean Corpuscular Hemoglobin 31 pg (25-35) Mean Corpuscular Hemoglobin Concent 33 g/dL (31-37) Red Cell Distribution Width 15.3 % (11.5-14.5) Platelet Count 222 x10^3/uL (140-400) Prothrombin Time 12.8 SEC (11.7-14.0) Prothromb Time International Ratio 1.0 (0.8-1.1) Activated Partial Thromboplast Time 32 SEC (24-38) Sodium Level 141 mmol/L (136-145) Potassium Level 3.9 mmol/L (3.5-5.1) Chloride Level 105 mmol/L (98-107) Carbon Dioxide Level 27 mmol/L (21-32) Anion Gap 9 (6-14) Blood Urea Nitrogen 18 mg/dL (8-26) Creatinine 1.1 mg/dL (0.7-1.3) Estimated GFR (Cockcroft-Gault) 66.6 Glucose Level 113 mg/dL (70-99) Calcium Level 9.0 mg/dL (8.5-10.1) Total Bilirubin 0.2 mg/dL (0.2-1.0) Direct Bilirubin 0.1 mg/dL (0.0-0.2) Aspartate Amino Transf (AST/SGOT) 11 U/L (15-37) Alanine Aminotransferase (ALT/SGPT) 7 U/L (16-63) Alkaline Phosphatase 62 U/L (46-116) Creatine Kinase 61 U/L (39-308) OT-Jio-K-Type Natriuretic Peptide 57 pg/mL (0-124) Total Protein 6.3 g/dL (6.4-8.2) Albumin 3.4 g/dL (3.4-5.0) Laboratory Tests Test 04/27/19 12:56 White Blood Count 5.6 x10^3/uL (4.0-11.0) Red Blood Count 3.84 x10^6/uL (4.30-5.70) Hemoglobin 12.0 g/dL (13.0-17.5) Hematocrit 36.3 % (39.0-53.0) Mean Corpuscular Volume 95 fL (79-100) Mean Corpuscular Hemoglobin 31 pg (25-35) Mean Corpuscular Hemoglobin Concent 33 g/dL (31-37) Red Cell Distribution Width 15.3 % (11.5-14.5) Platelet Count 222 x10^3/uL (140-400) Prothrombin Time 12.8 SEC (11.7-14.0) Prothromb Time International Ratio 1.0 (0.8-1.1) Activated Partial Thromboplast Time 32 SEC (24-38) Sodium Level 141 mmol/L (136-145) Potassium Level 3.9 mmol/L (3.5-5.1) Chloride Level 105 mmol/L (98-107) Carbon Dioxide Level 27 mmol/L (21-32) Anion Gap 9 (6-14) Blood Urea Nitrogen 18 mg/dL (8-26) Creatinine 1.1 mg/dL (0.7-1.3) Estimated GFR (Cockcroft-Gault) 66.6 Glucose Level 113 mg/dL (70-99) Calcium Level 9.0 mg/dL (8.5-10.1) Total Bilirubin 0.2 mg/dL (0.2-1.0) Direct Bilirubin 0.1 mg/dL (0.0-0.2) Aspartate Amino Transf (AST/SGOT) 11 U/L (15-37) Alanine Aminotransferase (ALT/SGPT) 7 U/L (16-63) Alkaline Phosphatase 62 U/L (46-116) Creatine Kinase 61 U/L (39-308) WN-Ufb-E-Type Natriuretic Peptide 57 pg/mL (0-124) Total Protein 6.3 g/dL (6.4-8.2) Albumin 3.4 g/dL (3.4-5.0) Medications Active Scripts Medications Dose Route/Sig Max Daily Dose Days Date Category Tylenol Extra Strength (Acetaminophen) 500 Mg Tablet 500 Mg PO QID 04/27/19 Reported Sinemet Cr 50-200 Tablet (Carbidopa/Levodopa) 1 Each Tablet.er 1 Tab PO BID 04/27/19 Reported Seroquel (Quetiapine Fumarate) 50 Mg Tablet 5 Tab PO QHS 04/27/19 Reported Remeron (Mirtazapine) 15 Mg Tablet 1 Tab PO QHS 04/27/19 Reported Polyethylene Glycol 3350 2,500 Gm Powder 17 Gm PO BID 04/27/19 Reported Lisinopril 40 Mg Tablet 1 Tab PO BID 04/27/19 Reported [place] 5-325 Tablet (Acetaminophen/Hydrocodone Bitart) 1 Each Tablet 1 Tab PO BID 04/27/19 Reported Gabapentin 600 Mg Tablet 600 Mg PO BID 04/27/19 Reported Impression . NOT DICTATED THANKS AGREE WITH CURRENT RX WILL CHECK A CTA CHEST MARINA MCCLENDON MD Apr 27, 2019 17:10
[2019-04-27] MEDS ORDERED: IV 1/2 NORMAL SALINE 1,000 ML IV ONE (17:15)
[2019-04-27] MEDS: ACETAMINOPHEN 500 MG TABLET PO SCH ×2 (18:43→20:36)
[2019-04-27] MEDS: LISINOPRIL 20 MG TABLET PO SCH ×2 (18:43→20:35)
[2019-04-27 19:20] VITALS: BP 151/73
[2019-04-27] MEDS: QUEtiapine 100 MG TABLET. PO SCH (20:33)
[2019-04-27] MEDS: CARBIDOPA/LEVODOPA CR 25/100MG TABLET.SA. PO SCH (20:33)
[2019-04-27] MEDS: MIRTAZAPINE 15 MG TABLET PO SCH (20:35)
[2019-04-27] MEDS: HYDROcodone/APAP 5/325MG 1 TAB TABLET PO SCH (20:35)
[2019-04-27] MEDS: QUEtiapine 25 MG TABLET. PO SCH (20:36)
[2019-04-27] MEDS: GABAPENTIN 300 MG CAPSULE. PO SCH (20:37)
[2019-04-27] MEDS: POLYETHYLENE GLYCOL 3350 17 GM PACKET. PO SCH (21:00)
[2019-04-27 23:30] VITALS: BP 161/115
--- NOTE | 2019-04-28 01:21 | CONS ---
DATE OF CONSULTATION: 04/27/2019 ATTENDING PHYSICIAN: Dr. Rowe REASON FOR CONSULTATION: The patient is seen in pulmonary consultation at the request of Dr. Rowe for PE. HISTORY OF PRESENT ILLNESS: The patient is a 69-year-old who is a very poor historian. He resides at [facility]. Apparently, there was some documentation of stroke-like symptoms, slurred speech, left upper weakness. The patient was taken to the Emergency Department. CT of the head was performed. There were no acute changes. It was advised that CT angio of the head and neck be performed. There was an incidental finding of bilateral pulmonary emboli as a consequence. I was asked to see him in consultation. He had a lower extremity venous Dopplers, which revealed occlusive thrombus within the right popliteal vein. The patient is currently undergoing IV heparin. The patient himself has dementia. He did know his name. I asked him if he was short of breath today, yes; yesterday, yes; last week, yes. I asked him if he had pain upon deep inspiration, he said no. He could not tell me if he was weak on one side or the other earlier today. PAST MEDICAL HISTORY: Obtained by reviewing the current documentation. Dr. Burris saw him in consult. There is a history of hypertension, hyperlipidemia, COPD, sleep apnea, Parkinson's dementia, dyspepsia, anemia, anxiety, depression, schizoaffective disorder, posttraumatic stress disorder, chronic insomnia, osteoarthritis. PAST SURGICAL HISTORY: As above. FAMILY HISTORY: Unknown. SOCIAL HISTORY: Apparently, he is , lives in [facility]. ALLERGIES: No known drug allergies. CURRENT MEDICATIONS: List was reviewed. PHYSICAL EXAMINATION: GENERAL: The patient did not appear to be in any respiratory distress. He was actually on room air. Respiratory rate was not markedly elevated. HEENT: Eyes: The sclerae were nonicteric. NECK: Jugular venous distention was not elevated. No lymphadenopathy. CHEST: Full expansion. LUNGS: Adequate airway flow with no wheezes. CARDIOVASCULAR: Regular rate and rhythm with S1, S2, no S3. ABDOMEN: Soft, nontender, nondistended. EXTREMITIES: No clubbing, cyanosis or edema. LABORATORY DATA: Reviewed. INR was 1.0. White count was normal. Hemoglobin and hematocrit were noted. BUN and creatinine were normal. Total protein was 6.3. IMPRESSION: 1. Pulmonary embolism. 2. Deep venous thrombosis of right popliteal vein. 3. Hypoxemia upon arrival to the Emergency Department. 4. Multiple other comorbidities as listed above. 5. Hypertension. 6. Chronic obstructive pulmonary disease. 7. Depression. 8. Anemia. 9. Schizoaffective disorder. 10. History of parkinsonism. PLAN: 1. We will proceed with CT angiogram. 2. Continue IV heparin. 3. Follow other consultants' input. I do appreciate the privilege in sharing in the patient's care. MARINA MCCLENDON MD DR: DALIA/radha JOB#: [id number] / [id number]
[2019-04-28 03:10] VITALS: BP 191/80
[2019-04-28] MEDS: cloNIDine HCL 0.2 MG TABLET PO PRN ×2 (03:19→11:50)
[2019-04-28] MEDS: IV 1/2 NORMAL SALINE 1,000 ML IV SCH ×2 (03:50→09:38)
[2019-04-28 03:51] VITALS: BP 159/74
[2019-04-28 07:00] VITALS: BP 105/59
[2019-04-28] MEDS ORDERED: CONTRAST GIVEN. MC PRN (08:45)
[2019-04-28] MEDS ORDERED: IOHEXOL 350 MG/ML 100 ML VIAL. IV ONE (08:45)
[2019-04-28 09:12] LABS: HEMATOCRIT 33.2 % (39.0-53.0); HEMOGLOBIN 10.9 g/dL (13.0-17.5)
--- NOTE | 2019-04-28 09:12 | PDOC ---
PULMONARY PROGRESS NOTES Subjective PT CONFUSED Vitals Vital Signs Date Time Temp Pulse Resp B/P (MAP) Pulse Ox O2 Delivery O2 Flow Rate FiO2 04/28/19 07:00 97.9 65 20 105/59 (74) 93 Room Air 97.9 ROS: No Nausea, No Chest Pain, No Abdominal Pain, No Increase Cough General: Alert Lungs: Clear Cardiovascular: S1, S2 Abdomen: Soft Neuro Exam: Alert Extremities: No Edema Skin: Warm Labs Laboratory Tests Test 04/27/19 12:56 04/27/19 21:45 04/28/19 04:40 White Blood Count 5.6 x10^3/uL (4.0-11.0) Red Blood Count 3.84 x10^6/uL (4.30-5.70) Hemoglobin 12.0 g/dL (13.0-17.5) Hematocrit 36.3 % (39.0-53.0) Mean Corpuscular Volume 95 fL (79-100) Mean Corpuscular Hemoglobin 31 pg (25-35) Mean Corpuscular Hemoglobin Concent 33 g/dL (31-37) Red Cell Distribution Width 15.3 % (11.5-14.5) Platelet Count 222 x10^3/uL (140-400) Prothrombin Time 12.8 SEC (11.7-14.0) Prothromb Time International Ratio 1.0 (0.8-1.1) Activated Partial Thromboplast Time 32 SEC (24-38) Sodium Level 141 mmol/L (136-145) Potassium Level 3.9 mmol/L (3.5-5.1) Chloride Level 105 mmol/L (98-107) Carbon Dioxide Level 27 mmol/L (21-32) Anion Gap 9 (6-14) Blood Urea Nitrogen 18 mg/dL (8-26) Creatinine 1.1 mg/dL (0.7-1.3) Estimated GFR (Cockcroft-Gault) 66.6 Glucose Level 113 mg/dL (70-99) Calcium Level 9.0 mg/dL (8.5-10.1) Total Bilirubin 0.2 mg/dL (0.2-1.0) Direct Bilirubin 0.1 mg/dL (0.0-0.2) Aspartate Amino Transf (AST/SGOT) 11 U/L (15-37) Alanine Aminotransferase (ALT/SGPT) 7 U/L (16-63) Alkaline Phosphatase 62 U/L (46-116) Creatine Kinase 61 U/L (39-308) XB-Row-R-Type Natriuretic Peptide 57 pg/mL (0-124) Total Protein 6.3 g/dL (6.4-8.2) Albumin 3.4 g/dL (3.4-5.0) Heparin Anti-Xa Act, Unfractionated 0.90 IU/mL (0.30-0.70) 0.78 IU/mL (0.30-0.70) Laboratory Tests Test 04/27/19 12:56 04/27/19 21:45 04/28/19 04:40 White Blood Count 5.6 x10^3/uL (4.0-11.0) Red Blood Count 3.84 x10^6/uL (4.30-5.70) Hemoglobin 12.0 g/dL (13.0-17.5) Hematocrit 36.3 % (39.0-53.0) Mean Corpuscular Volume 95 fL (79-100) Mean Corpuscular Hemoglobin 31 pg (25-35) Mean Corpuscular Hemoglobin Concent 33 g/dL (31-37) Red Cell Distribution Width 15.3 % (11.5-14.5) Platelet Count 222 x10^3/uL (140-400) Prothrombin Time 12.8 SEC (11.7-14.0) Prothromb Time International Ratio 1.0 (0.8-1.1) Activated Partial Thromboplast Time 32 SEC (24-38) Sodium Level 141 mmol/L (136-145) Potassium Level 3.9 mmol/L (3.5-5.1) Chloride Level 105 mmol/L (98-107) Carbon Dioxide Level 27 mmol/L (21-32) Anion Gap 9 (6-14) Blood Urea Nitrogen 18 mg/dL (8-26) Creatinine 1.1 mg/dL (0.7-1.3) Estimated GFR (Cockcroft-Gault) 66.6 Glucose Level 113 mg/dL (70-99) Calcium Level 9.0 mg/dL (8.5-10.1) Total Bilirubin 0.2 mg/dL (0.2-1.0) Direct Bilirubin 0.1 mg/dL (0.0-0.2) Aspartate Amino Transf (AST/SGOT) 11 U/L (15-37) Alanine Aminotransferase (ALT/SGPT) 7 U/L (16-63) Alkaline Phosphatase 62 U/L (46-116) Creatine Kinase 61 U/L (39-308) ZI-Dhh-I-Type Natriuretic Peptide 57 pg/mL (0-124) Total Protein 6.3 g/dL (6.4-8.2) Albumin 3.4 g/dL (3.4-5.0) Heparin Anti-Xa Act, Unfractionated 0.90 IU/mL (0.30-0.70) 0.78 IU/mL (0.30-0.70) Medications Active Scripts Medications Dose Route/Sig Max Daily Dose Days Date Category Tylenol Extra Strength (Acetaminophen) 500 Mg Tablet 500 Mg PO QID 04/27/19 Reported Sinemet Cr 50-200 Tablet (Carbidopa/Levodopa) 1 Each Tablet.er 1 Tab PO BID 04/27/19 Reported Seroquel (Quetiapine Fumarate) 50 Mg Tablet 5 Tab PO QHS 04/27/19 Reported Remeron (Mirtazapine) 15 Mg Tablet 1 Tab PO QHS 04/27/19 Reported Polyethylene Glycol 3350 2,500 Gm Powder 17 Gm PO BID 04/27/19 Reported Lisinopril 40 Mg Tablet 1 Tab PO BID 04/27/19 Reported [place] 5-325 Tablet (Acetaminophen/Hydrocodone Bitart) 1 Each Tablet 1 Tab PO BID 04/27/19 Reported Gabapentin 600 Mg Tablet 600 Mg PO BID 04/27/19 Reported Impression . IMPRESSION: 1. Pulmonary embolism. 2. Deep venous thrombosis of right popliteal vein. 3. Hypoxemia upon arrival to the Emergency Department. 4. Multiple other comorbidities as listed above. 5. Hypertension. 6. Chronic obstructive pulmonary disease. 7. Depression. 8. Anemia. 9. Schizoaffective disorder. 10. History of parkinsonism. Plan . CT CHEST REVIEWED D/W DR HUI NUNEZ ANTICOUGULATION MARINA MCCLENDON MD Apr 28, 2019 09:12
[2019-04-28] MEDS: CARBIDOPA/LEVODOPA CR 25/100MG TABLET.SA. PO SCH ×2 (09:25→20:19)
[2019-04-28] MEDS: POLYETHYLENE GLYCOL 3350 17 GM PACKET. PO SCH ×2 (09:26→20:41)
[2019-04-28] MEDS: GABAPENTIN 300 MG CAPSULE. PO SCH ×2 (09:26→20:19)
[2019-04-28] MEDS: ACETAMINOPHEN 500 MG TABLET PO SCH ×4 (09:27→20:28)
[2019-04-28] MEDS: HYDROcodone/APAP 5/325MG 1 TAB TABLET PO SCH ×2 (09:28→20:28)
[2019-04-28] MEDS: LISINOPRIL 20 MG TABLET PO SCH ×2 (09:28→20:22)
--- NOTE | 2019-04-28 09:33 | RAD ---
CTA of the chest. 04/28/2019 Indication: [Shortness of breath. Patient with recurrent DVT. Comparison study: [Lower extremity duplex ultrasound, yesterday] Technique: Multidetector CT imaging of the chest was performed following the administration of intravenous contrast. Multiple reconstructions including 3-D maximum intensity projection reconstructions were created on an independent workstation and reviewed. Findings: Exam is severely limited by poor opacification of pulmonary arteries of IV contrast. There appears to be filling defects within the pulmonary artery supplying the left lower lobe possibly the right lower lobe suggestive of acute pulmonary embolism. Heart size is normal. No pericardial effusion is seen. No pathologically enlarged mediastinal adenopathy. No pneumothorax.Motion artifact limits evaluation of the lung parenchyma. There is a probable noncalcified nodule right middle lobe possibly measuring up to 8 mm in diameter. Motion artifact precludes accurate measurement. No acute osseous changes are identified. Limited visualization of the upper abdomen demonstrates no acute normality. IMPRESSION: 1. Exam is limited, but there appears to be acute pulmonary embolism bilaterally with an artery supplying the lower lobes. 2. Possibly millimeter nodule, right middle lobe. Follow-up CT chest recommended when patient able to breath-hold/clinically feasible. CT DOSING PQRS STATEMENT: One or more of the following individualized dose reduction techniques were utilized for this examination: 1. Automated exposure control 2. Adjustment of the mA and/or kV according to patient size 3. Use of iterative reconstruction technique Electronically signed by: Allen Alvarez MD (04/28/2019 9:30 AM) [id number]
[2019-04-28] MEDS: HEPARIN 25,000UTS/500ML PREMIX 500 ML IV PRN (09:42)
--- NOTE | 2019-04-28 10:58 | PDOC ---
PROGRESS NOTES Assessment Problems Medical Problems: (1) Bilateral lower extremity pain Status: Acute (2) Bilateral pulmonary embolism Status: Acute (3) Schizophrenia Status: Acute Generalized weakness, I'm really not picking up on anything focal that would show a stroke. Certainly the pulmonary emboli play a role Dementia Diagnosis of Parkinson's disease Multiple psychiatric disorders. Plan Await MRI brain Continue current medications. Subjective He denies pain or shortness of breath Objective Vital Signs Date Time Temp Pulse Resp B/P (MAP) Pulse Ox O2 Delivery O2 Flow Rate FiO2 04/28/19 09:28 85 163/76 04/28/19 09:28 93 Room Air 04/28/19 07:00 97.9 20 97.9 Intake and Output 04/28/19 07:00 Intake Total 100 ml Balance 100 ml Intake Oral 100 ml # Voids 4 PHYSICAL EXAM Alert. Oriented to person, he does not know date or location. PERRL. EOMI. CN: no focal findings. Muscle tone: gegenhalten Muscle strength: 4/5 DTR: 2+ Plantar reflex: flexor Gait: not examined in bed. Sensory exam: no abnormal findings. No cerebellar signs elicited. There is decreased facial expression but no tremor or bradykinesia. Review of Relevant I have reviewed the following items luis miguel (where applicable) has been applied. Labs Laboratory Tests Test 04/27/19 12:56 04/27/19 21:45 04/28/19 04:40 White Blood Count 5.6 x10^3/uL (4.0-11.0) Red Blood Count 3.84 x10^6/uL (4.30-5.70) Hemoglobin 12.0 g/dL (13.0-17.5) 10.9 g/dL (13.0-17.5) Hematocrit 36.3 % (39.0-53.0) 33.2 % (39.0-53.0) Mean Corpuscular Volume 95 fL (79-100) Mean Corpuscular Hemoglobin 31 pg (25-35) Mean Corpuscular Hemoglobin Concent 33 g/dL (31-37) 33 g/dL (31-37) Red Cell Distribution Width 15.3 % (11.5-14.5) Platelet Count 222 x10^3/uL (140-400) Prothrombin Time 12.8 SEC (11.7-14.0) Prothromb Time International Ratio 1.0 (0.8-1.1) Activated Partial Thromboplast Time 32 SEC (24-38) Sodium Level 141 mmol/L (136-145) Potassium Level 3.9 mmol/L (3.5-5.1) Chloride Level 105 mmol/L (98-107) Carbon Dioxide Level 27 mmol/L (21-32) Anion Gap 9 (6-14) Blood Urea Nitrogen 18 mg/dL (8-26) Creatinine 1.1 mg/dL (0.7-1.3) Estimated GFR (Cockcroft-Gault) 66.6 Glucose Level 113 mg/dL (70-99) Calcium Level 9.0 mg/dL (8.5-10.1) Total Bilirubin 0.2 mg/dL (0.2-1.0) Direct Bilirubin 0.1 mg/dL (0.0-0.2) Aspartate Amino Transf (AST/SGOT) 11 U/L (15-37) Alanine Aminotransferase (ALT/SGPT) 7 U/L (16-63) Alkaline Phosphatase 62 U/L (46-116) Creatine Kinase 61 U/L (39-308) IB-Hma-X-Type Natriuretic Peptide 57 pg/mL (0-124) Total Protein 6.3 g/dL (6.4-8.2) Albumin 3.4 g/dL (3.4-5.0) Heparin Anti-Xa Act, Unfractionated 0.90 IU/mL (0.30-0.70) 0.78 IU/mL (0.30-0.70) Laboratory Tests Test 04/27/19 12:56 04/27/19 21:45 04/28/19 04:40 White Blood Count 5.6 x10^3/uL (4.0-11.0) Red Blood Count 3.84 x10^6/uL (4.30-5.70) Hemoglobin 12.0 g/dL (13.0-17.5) 10.9 g/dL (13.0-17.5) Hematocrit 36.3 % (39.0-53.0) 33.2 % (39.0-53.0) Mean Corpuscular Volume 95 fL (79-100) Mean Corpuscular Hemoglobin 31 pg (25-35) Mean Corpuscular Hemoglobin Concent 33 g/dL (31-37) 33 g/dL (31-37) Red Cell Distribution Width 15.3 % (11.5-14.5) Platelet Count 222 x10^3/uL (140-400) Prothrombin Time 12.8 SEC (11.7-14.0) Prothromb Time International Ratio 1.0 (0.8-1.1) Activated Partial Thromboplast Time 32 SEC (24-38) Sodium Level 141 mmol/L (136-145) Potassium Level 3.9 mmol/L (3.5-5.1) Chloride Level 105 mmol/L (98-107) Carbon Dioxide Level 27 mmol/L (21-32) Anion Gap 9 (6-14) Blood Urea Nitrogen 18 mg/dL (8-26) Creatinine 1.1 mg/dL (0.7-1.3) Estimated GFR (Cockcroft-Gault) 66.6 Glucose Level 113 mg/dL (70-99) Calcium Level 9.0 mg/dL (8.5-10.1) Total Bilirubin 0.2 mg/dL (0.2-1.0) Direct Bilirubin 0.1 mg/dL (0.0-0.2) Aspartate Amino Transf (AST/SGOT) 11 U/L (15-37) Alanine Aminotransferase (ALT/SGPT) 7 U/L (16-63) Alkaline Phosphatase 62 U/L (46-116) Creatine Kinase 61 U/L (39-308) YI-Wbv-[id number]-Type Natriuretic Peptide 57 pg/mL (0-124) Total Protein 6.3 g/dL (6.4-8.2) Albumin 3.4 g/dL (3.4-5.0) Heparin Anti-Xa Act, Unfractionated 0.90 IU/mL (0.30-0.70) 0.78 IU/mL (0.30-0.70) Medications Current Medications Iohexol (Omnipaque 350 Mg/ml) 75 ml 1X ONCE IV Last administered on 04/27/19at 13:15; Start 04/27/19 at 13:15; Stop 04/27/19 at 13:16; Status DC Fentanyl Citrate (Fentanyl 2ml Vial) 50 mcg 1X ONCE IVP ; Start 04/27/19 at 13:30; Stop 04/27/19 at 13:31; Status DC Info (CONTRAST GIVEN -- Rx MONITORING) 1 each PRN DAILY PRN MC SEE COMMENTS; Start 04/27/19 at 13:45; Stop 04/29/19 at 13:44 Enoxaparin Sodium (Lovenox 100mg Syringe) 100 mg 1X ONCE SQ ; Start 04/27/19 at 14:15; Stop 04/27/19 at 14:17; Status DC Heparin Sodium/ Dextrose 500 ml @ 30.08 mls/ hr CONT PRN IV SEE COMMENTS Last administered on 04/28/19at 09:42; Start 04/27/19 at 14:30 Heparin Sodium (Porcine) (Heparin Sodium) 2,800 unit PRN Q6HRS PRN IV FOR UFH LEVEL LESS THAN 0.2; Start 04/27/19 at 14:30 Heparin Sodium (Porcine) (Heparin Sodium) 1,400 unit PRN Q6HRS PRN IV FOR UFH LEVEL 0.2 - 0.29; Start 04/27/19 at 14:30 Acetaminophen (Tylenol) 500 mg PRN Q6HRS PRN PO MILD PAIN / TEMP; Start 04/27/19 at 14:30 Acetaminophen/ Codeine Phosphate (Tylenol #3) 1 tab PRN Q6HRS PRN PO MODERATE PAIN; Start 04/27/19 at 14:30 Ondansetron HCl (Zofran) 4 mg PRN Q6HRS PRN IVP NAUSEA/VOMITING; Start 04/27/19 at 14:30 Morphine Sulfate (Morphine Sulfate) 2 mg PRN Q2HR PRN IV PAIN; Start 04/27/19 at 14:30 Sodium Chloride 1,000 ml @ 75 mls/hr [id number] IV Last administered on 04/28/19at 09:38; Start 04/27/19 at 14:30 Info (Anti-Coagulation Monitoring By Pharmacy) 1 each PRN DAILY PRN MC SEE COMMENTS; Start 04/27/19 at 14:30 Heparin Sodium (Porcine) (Heparin Sodium) 7,500 unit 1X ONCE IV Last administered on 04/27/19at 15:31; Start 04/27/19 at 15:15; Stop 04/27/19 at 15:16; Status DC Acetaminophen (Tylenol) 500 mg QID PO Last administered on 04/28/19at 09:27; Start 04/27/19 at 17:00 Acetaminophen/ Hydrocodone Bitart (Lortab 5/325) 1 tab BID PO Last administered on 04/28/19 09:28; Start 04/27/19 at 21:00 Lisinopril (Prinivil) 40 mg BID PO Last administered on 04/28/19 09:28; Start 04/27/19 at 19:00 Mirtazapine (Remeron) 15 mg QHS PO Last administered on 04/27/19 20:35; Start 04/27/19 at 21:00 Carbidopa/Levodopa (Sinemet Cr) 2 tab.sa BID PO Last administered on 04/28/19 09:25; Start 04/27/19 at 21:00 Gabapentin (Neurontin) 600 mg BID PO Last administered on 04/28/19 09:26; Start 04/27/19 at 21:00 Polyethylene Glycol (miraLAX PACKET) 17 gm BID PO Last administered on 04/28/19 09:26; Start 04/27/19 at 21:00 Quetiapine Fumarate (SEROquel) 200 mg QHS PO Last administered on 04/27/19 20:33; Start 04/27/19 at 21:00 Quetiapine Fumarate (SEROquel) 50 mg QHS PO Last administered on 04/27/19 20:36; Start 04/27/19 at 21:00 Sodium Chloride 1,000 ml @ 125 mls/hr 1X ONCE IV Last administered on 04/27/19 18:44; Start 04/27/19 at 17:15; Stop 04/28/19 at 01:14; Status DC Clonidine HCl (Catapres) 0.2 mg PRN Q8HRS PRN PO HYPERTENSION Last administered on 04/28/19 03:19; Start 04/27/19 at 20:15 Iohexol (Omnipaque 350 Mg/ml) 100 ml 1X ONCE IV Last administered on 04/28/19 08:45; Start 04/28/19 at 08:45; Stop 04/28/19 at 08:49; Status DC Info (CONTRAST GIVEN -- Rx MONITORING) 1 each PRN DAILY PRN MC SEE COMMENTS; Start 04/28/19 at 08:45; Stop 04/30/19 at 08:44 Active Scripts Active Reported Tylenol Extra Strength (Acetaminophen) 500 Mg Tablet 500 Mg PO QID Sinemet Cr 50-200 Tablet (Carbidopa/Levodopa) 1 Each Tablet.er 1 Tab PO BID Seroquel (Quetiapine Fumarate) 50 Mg Tablet 5 Tab PO QHS Remeron (Mirtazapine) 15 Mg Tablet 1 Tab PO QHS Polyethylene Glycol 3350 2,500 Gm Powder 17 Gm PO BID Lisinopril 40 Mg Tablet 1 Tab PO BID [place] 5-325 Tablet (Acetaminophen/Hydrocodone Bitart) 1 Each Tablet 1 Tab PO BID Gabapentin 600 Mg Tablet 600 Mg PO BID Vitals/I & O Vital Sign - Last 24 Hours 04/27/19 04/27/19 04/27/19 04/27/19 13:06 13:30 13:30 13:45 Temp 97.9 97.9 Pulse 72 68 64 Resp 19 16 16 12 B/P (MAP) 114/72 (86) Pulse Ox 96 O2 Delivery Room Air Room Air 04/27/19 04/27/19 04/27/19 04/27/19 14:00 14:15 14:30 15:15 Pulse 62 64 58 58 Resp 14 20 14 14 04/27/19 04/27/19 04/27/19 04/27/19 15:50 18:43 19:18 19:20 Temp 98.0 98.7 98.0 98.7 Pulse 69 72 76 Resp 18 20 B/P (MAP) 169/90 (116) 192/84 151/73 (99) Pulse Ox 97 98 O2 Delivery Room Air Room Air Room Air 04/27/19 04/27/19 04/27/19 04/28/19 20:35 21:51 23:30 03:10 Temp 98.4 98.5 98.4 98.5 Pulse 76 81 69 Resp 18 20 B/P (MAP) 151/73 161/115 (130) 191/80 (117) Pulse Ox 96 96 O2 Delivery Room Air Room Air Room Air 04/28/19 04/28/19 04/28/19 04/28/19 03:19 03:51 07:00 09:28 Temp 97.9 97.9 Pulse 81 65 Resp 20 B/P (MAP) 191/80 159/74 (102) 105/59 (74) Pulse Ox 93 93 O2 Delivery Room Air Room Air 11/19/19 09:28 Pulse 85 B/P (MAP) 163/76 Intake and Output 04/27/19 04/27/19 04/28/19 15:00 23:00 07:00 Intake Total 100 ml Balance 100 ml MIS GOTTI MD Apr 28, 2019 10:58
[2019-04-28 11:00] VITALS: BP 174/98
--- NOTE | 2019-04-28 11:52 | NUR ---
SS following for discharge planning. SS reviewed pt chart. Pt is from [facility], ; fax [phone], and is currently on room air. SS contacted [facility] and verified that pt was a LTC resident from there facility and is able to return when medically stable for discharge. SS will continue to follow for discharge planning.
--- NOTE | 2019-04-28 12:22 | PDOC ---
PROGRESS NOTES Chief Complaint Chief Complaint Transient slurred speech Weak left LE > RT LE - NIH 20 at ER MUltiple bilateral PE - new - first episode NEw RT leg DVT 60% stenosis left ICA Severe stenosis Left M2, chronic Sever stenosis origin left vertebral Artery vs artifact\ 5 mm apical lung nodule in a non smoker SNU resident full code History of Present Illness History of Present Illness Dw pulmo, quite impressive PE Was hypoxic BEd bound mostly in post acute medical Chambers Ate today per RN DVT ln RT LEG - new ON heparin gtt SLurred speech and some intermittent confusion BUt the rt sided weakness not evident PLAN; Echo MRI brain CT Angio chest ordered PT OT HEparin gtt Dw pulmo, Novel OAC on dc, BUT OF FREQ FALLS AT U< THEN MIGHT NEED IVC INSTEAD FULL CODE for now KEep tele, CVC status BR[employer] SPECIALIST eval - might need dysphagia diet Vitals Vitals Vital Signs Date Time Temp Pulse Resp B/P (MAP) Pulse Ox O2 Delivery O2 Flow Rate FiO2 04/28/19 11:50 62 182/88 04/28/19 10:28 93 Room Air 04/28/19 07:00 97.9 20 97.9 Physical Exam General: Alert, Oriented X3, Cooperative, No acute distress Abdomen: Normal bowel sounds, Soft, No tenderness, No hepatosplenomegaly, No masses Extremities: No clubbing, No cyanosis, No edema, Normal pulses, No tenderness/swelling Skin: No rashes, No breakdown, No significant lesion Labs LABS Laboratory Tests Test 04/27/19 12:56 04/27/19 21:45 04/28/19 04:40 04/28/19 10:45 White Blood Count 5.6 x10^3/uL (4.0-11.0) Red Blood Count 3.84 x10^6/uL (4.30-5.70) Hemoglobin 12.0 g/dL (13.0-17.5) 10.9 g/dL (13.0-17.5) Hematocrit 36.3 % (39.0-53.0) 33.2 % (39.0-53.0) Mean Corpuscular Volume 95 fL (79-100) Mean Corpuscular Hemoglobin 31 pg (25-35) Mean Corpuscular Hemoglobin Concent 33 g/dL (31-37) 33 g/dL (31-37) Red Cell Distribution Width 15.3 % (11.5-14.5) Platelet Count 222 x10^3/uL (140-400) Prothrombin Time 12.8 SEC (11.7-14.0) Prothromb Time International Ratio 1.0 (0.8-1.1) Activated Partial Thromboplast Time 32 SEC (24-38) Sodium Level 141 mmol/L (136-145) Potassium Level 3.9 mmol/L (3.5-5.1) Chloride Level 105 mmol/L (98-107) Carbon Dioxide Level 27 mmol/L (21-32) Anion Gap 9 (6-14) Blood Urea Nitrogen 18 mg/dL (8-26) Creatinine 1.1 mg/dL (0.7-1.3) Estimated GFR (Cockcroft-Gault) 66.6 Glucose Level 113 mg/dL (70-99) Calcium Level 9.0 mg/dL (8.5-10.1) Total Bilirubin 0.2 mg/dL (0.2-1.0) Direct Bilirubin 0.1 mg/dL (0.0-0.2) Aspartate Amino Transf (AST/SGOT) 11 U/L (15-37) Alanine Aminotransferase (ALT/SGPT) 7 U/L (16-63) Alkaline Phosphatase 62 U/L (46-116) Creatine Kinase 61 U/L (39-308) NM-Ayu-[id number]-Type Natriuretic Peptide 57 pg/mL (0-124) Total Protein 6.3 g/dL (6.4-8.2) Albumin 3.4 g/dL (3.4-5.0) Heparin Anti-Xa Act, Unfractionated 0.90 IU/mL (0.30-0.70) 0.78 IU/mL (0.30-0.70) 0.59 IU/mL (0.30-0.70) Review of Systems Review of Systems confused today, so limited ROS Assessment and Plan Assessmemt and Plan Problems Medical Problems: (1) Bilateral lower extremity pain Status: Acute (2) Bilateral pulmonary embolism Status: Acute (3) Schizophrenia Status: Acute Comment Review of Relevant I have reviewed the following items luis miguel (where applicable) has been applied. Labs Laboratory Tests Test 04/27/19 12:56 04/27/19 21:45 04/28/19 04:40 04/28/19 10:45 White Blood Count 5.6 x10^3/uL (4.0-11.0) Red Blood Count 3.84 x10^6/uL (4.30-5.70) Hemoglobin 12.0 g/dL (13.0-17.5) 10.9 g/dL (13.0-17.5) Hematocrit 36.3 % (39.0-53.0) 33.2 % (39.0-53.0) Mean Corpuscular Volume 95 fL (79-100) Mean Corpuscular Hemoglobin 31 pg (25-35) Mean Corpuscular Hemoglobin Concent 33 g/dL (31-37) 33 g/dL (31-37) Red Cell Distribution Width 15.3 % (11.5-14.5) Platelet Count 222 x10^3/uL (140-400) Prothrombin Time 12.8 SEC (11.7-14.0) Prothromb Time International Ratio 1.0 (0.8-1.1) Activated Partial Thromboplast Time 32 SEC (24-38) Sodium Level 141 mmol/L (136-145) Potassium Level 3.9 mmol/L (3.5-5.1) Chloride Level 105 mmol/L (98-107) Carbon Dioxide Level 27 mmol/L (21-32) Anion Gap 9 (6-14) Blood Urea Nitrogen 18 mg/dL (8-26) Creatinine 1.1 mg/dL (0.7-1.3) Estimated GFR (Cockcroft-Gault) 66.6 Glucose Level 113 mg/dL (70-99) Calcium Level 9.0 mg/dL (8.5-10.1) Total Bilirubin 0.2 mg/dL (0.2-1.0) Direct Bilirubin 0.1 mg/dL (0.0-0.2) Aspartate Amino Transf (AST/SGOT) 11 U/L (15-37) Alanine Aminotransferase (ALT/SGPT) 7 U/L (16-63) Alkaline Phosphatase 62 U/L (46-116) Creatine Kinase 61 U/L (39-308) KJ-Bea-Y-Type Natriuretic Peptide 57 pg/mL (0-124) Total Protein 6.3 g/dL (6.4-8.2) Albumin 3.4 g/dL (3.4-5.0) Heparin Anti-Xa Act, Unfractionated 0.90 IU/mL (0.30-0.70) 0.78 IU/mL (0.30-0.70) 0.59 IU/mL (0.30-0.70) Laboratory Tests Test 04/27/19 12:56 04/27/19 21:45 04/28/19 04:40 04/28/19 10:45 White Blood Count 5.6 x10^3/uL (4.0-11.0) Red Blood Count 3.84 x10^6/uL (4.30-5.70) Hemoglobin 12.0 g/dL (13.0-17.5) 10.9 g/dL (13.0-17.5) Hematocrit 36.3 % (39.0-53.0) 33.2 % (39.0-53.0) Mean Corpuscular Volume 95 fL (79-100) Mean Corpuscular Hemoglobin 31 pg (25-35) Mean Corpuscular Hemoglobin Concent 33 g/dL (31-37) 33 g/dL (31-37) Red Cell Distribution Width 15.3 % (11.5-14.5) Platelet Count 222 x10^3/uL (140-400) Prothrombin Time 12.8 SEC (11.7-14.0) Prothromb Time International Ratio 1.0 (0.8-1.1) Activated Partial Thromboplast Time 32 SEC (24-38) Sodium Level 141 mmol/L (136-145) Potassium Level 3.9 mmol/L (3.5-5.1) Chloride Level 105 mmol/L (98-107) Carbon Dioxide Level 27 mmol/L (21-32) Anion Gap 9 (6-14) Blood Urea Nitrogen 18 mg/dL (8-26) Creatinine 1.1 mg/dL (0.7-1.3) Estimated GFR (Cockcroft-Gault) 66.6 Glucose Level 113 mg/dL (70-99) Calcium Level 9.0 mg/dL (8.5-10.1) Total Bilirubin 0.2 mg/dL (0.2-1.0) Direct Bilirubin 0.1 mg/dL (0.0-0.2) Aspartate Amino Transf (AST/SGOT) 11 U/L (15-37) Alanine Aminotransferase (ALT/SGPT) 7 U/L (16-63) Alkaline Phosphatase 62 U/L (46-116) Creatine Kinase 61 U/L (39-308) AK-Mbc-L-Type Natriuretic Peptide 57 pg/mL (0-124) Total Protein 6.3 g/dL (6.4-8.2) Albumin 3.4 g/dL (3.4-5.0) Heparin Anti-Xa Act, Unfractionated 0.90 IU/mL (0.30-0.70) 0.78 IU/mL (0.30-0.70) 0.59 IU/mL (0.30-0.70) Medications Current Medications Iohexol (Omnipaque 350 Mg/ml) 75 ml 1X ONCE IV Last administered on 04/27/19at 13:15; Start 04/27/19 at 13:15; Stop 04/27/19 at 13:16; Status DC Fentanyl Citrate (Fentanyl 2ml Vial) 50 mcg 1X ONCE IVP ; Start 04/27/19 at 13:30; Stop 04/27/19 at 13:31; Status DC Info (CONTRAST GIVEN -- Rx MONITORING) 1 each PRN DAILY PRN MC SEE COMMENTS; Start 04/27/19 at 13:45; Stop 04/29/19 at 13:44 Enoxaparin Sodium (Lovenox 100mg Syringe) 100 mg 1X ONCE SQ ; Start 04/27/19 at 14:15; Stop 04/27/19 at 14:17; Status DC Heparin Sodium/ Dextrose 500 ml @ 30.08 mls/ hr CONT PRN IV SEE COMMENTS Last administered on 04/28/19at 09:42; Start 04/27/19 at 14:30 Heparin Sodium (Porcine) (Heparin Sodium) 2,800 unit PRN Q6HRS PRN IV FOR UFH LEVEL LESS THAN 0.2; Start 04/27/19 at 14:30 Heparin Sodium (Porcine) (Heparin Sodium) 1,400 unit PRN Q6HRS PRN IV FOR UFH LEVEL 0.2 - 0.29; Start 04/27/19 at 14:30 Acetaminophen (Tylenol) 500 mg PRN Q6HRS PRN PO MILD PAIN / TEMP; Start 04/27/19 at 14:30 Acetaminophen/ Codeine Phosphate (Tylenol #3) 1 tab PRN Q6HRS PRN PO MODERATE PAIN; Start 04/27/19 at 14:30 Ondansetron HCl (Zofran) 4 mg PRN Q6HRS PRN IVP NAUSEA/VOMITING; Start 04/27/19 at 14:30 Morphine Sulfate (Morphine Sulfate) 2 mg PRN Q2HR PRN IV PAIN; Start 04/27/19 at 14:30 Sodium Chloride 1,000 ml @ 75 mls/hr [id number] IV Last administered on 04/28/19 09:38; Start 04/27/19 at 14:30 Info (Anti-Coagulation Monitoring By Pharmacy) 1 each PRN DAILY PRN MC SEE COMMENTS; Start 04/27/19 at 14:30 Heparin Sodium (Porcine) (Heparin Sodium) 7,500 unit 1X ONCE IV Last administered on 04/27/19 15:31; Start 04/27/19 at 15:15; Stop 04/27/19 at 15:16; Status DC Acetaminophen (Tylenol) 500 mg QID PO Last administered on 04/28/19 09:27; Start 04/27/19 at 17:00 Acetaminophen/ Hydrocodone Bitart (Lortab 5/325) 1 tab BID PO Last administered on 04/28/19 09:28; Start 04/27/19 at 21:00 Lisinopril (Prinivil) 40 mg BID PO Last administered on 04/28/19 09:28; Start 04/27/19 at 19:00 Mirtazapine (Remeron) 15 mg QHS PO Last administered on 04/27/19 20:35; Start 04/27/19 at 21:00 Carbidopa/Levodopa (Sinemet Cr) 2 tab.sa BID PO Last administered on 04/28/19 09:25; Start 04/27/19 at 21:00 Gabapentin (Neurontin) 600 mg BID PO Last administered on 04/28/19 09:26; Start 04/27/19 at 21:00 Polyethylene Glycol (miraLAX PACKET) 17 gm BID PO Last administered on 04/28/19 09:26; Start 04/27/19 at 21:00 Quetiapine Fumarate (SEROquel) 200 mg QHS PO Last administered on 04/27/19 20:33; Start 04/27/19 at 21:00 Quetiapine Fumarate (SEROquel) 50 mg QHS PO Last administered on 04/27/19at 20:36; Start 04/27/19 at 21:00 Sodium Chloride 1,000 ml @ 125 mls/hr 1X ONCE IV Last administered on 04/27/19at 18:44; Start 04/27/19 at 17:15; Stop 04/28/19 at 01:14; Status DC Clonidine HCl (Catapres) 0.2 mg PRN Q8HRS PRN PO HYPERTENSION Last administered on 04/28/19at 11:50; Start 04/27/19 at 20:15 Iohexol (Omnipaque 350 Mg/ml) 100 ml 1X ONCE IV Last administered on 04/28/19a t 08:45; Start 04/28/19 at 08:45; Stop 04/28/19 at 08:49; Status DC Info (CONTRAST GIVEN -- Rx MONITORING) 1 each PRN DAILY PRN MC SEE COMMENTS; Start 04/28/19 at 08:45; Stop 04/30/19 at 08:44 Active Scripts Active Reported Tylenol Extra Strength (Acetaminophen) 500 Mg Tablet 500 Mg PO QID Sinemet Cr 50-200 Tablet (Carbidopa/Levodopa) 1 Each Tablet.er 1 Tab PO BID Seroquel (Quetiapine Fumarate) 50 Mg Tablet 5 Tab PO QHS Remeron (Mirtazapine) 15 Mg Tablet 1 Tab PO QHS Polyethylene Glycol 3350 2,500 Gm Powder 17 Gm PO BID Lisinopril 40 Mg Tablet 1 Tab PO BID [place] 5-325 Tablet (Acetaminophen/Hydrocodone Bitart) 1 Each Tablet 1 Tab PO BID Gabapentin 600 Mg Tablet 600 Mg PO BID Vitals/I & O Vital Sign - Last 24 Hours 04/27/19 04/27/19 04/27/19 04/27/19 13:06 13:30 13:30 13:45 Temp 97.9 97.9 Pulse 72 68 64 Resp 19 16 16 12 B/P (MAP) 114/72 (86) Pulse Ox 96 O2 Delivery Room Air Room Air 04/27/19 04/27/19 04/27/19 04/27/19 14:00 14:15 14:30 15:15 Pulse 62 64 58 58 Resp 14 20 14 14 11/18/19 11/18/19 11/18/19 11/18/19 15:50 18:43 19:18 19:20 Temp 98.0 98.7 98.0 98.7 Pulse 69 72 76 Resp 18 20 B/P (MAP) 169/90 (116) 192/84 151/73 (99) Pulse Ox 97 98 O2 Delivery Room Air Room Air Room Air 04/27/19 04/27/19 04/27/19 04/28/19 20:35 21:51 23:30 03:10 Temp 98.4 98.5 98.4 98.5 Pulse 76 81 69 Resp 18 20 B/P (MAP) 151/73 161/115 (130) 191/80 (117) Pulse Ox 96 96 O2 Delivery Room Air Room Air Room Air 04/28/19 04/28/19 04/28/19 04/28/19 03:19 03:51 07:00 08:00 Temp 97.9 97.9 Pulse 81 65 Resp 20 B/P (MAP) 191/80 159/74 (102) 105/59 (74) Pulse Ox 93 O2 Delivery Room Air Room Air 04/28/19 04/28/19 04/28/19 04/28/19 09:28 09:28 10:28 11:50 Pulse 85 62 B/P (MAP) 163/76 182/88 Pulse Ox 93 93 O2 Delivery Room Air Room Air Intake and Output 04/27/19 04/27/19 04/28/19 15:00 23:00 07:00 Intake Total 100 ml Balance 100 ml KIERAN WALSH MD Apr 28, 2019 12:21
[2019-04-28] MEDS ORDERED: BARIUM SULFATE 40% (APPLE) 148 GM PWD. PO ONE (12:30)
--- NOTE | 2019-04-28 15:36 | RAD ---
EXAM: Modified barium swallow. HISTORY: Dysphagia. FINDINGS: Barium contrast material was administered orally and multiple consistencies under the direction of speech pathology, and followed in its course during swallowing with video fluoroscopy. A fluoroscopic image and multiple videofluoroscopic clips were obtained. Fluoroscopy time 2.5 minutes. The radiologist was present for the entire imaging procedure. There was transient laryngeal penetration with thin and nectar consistencies. There was no gross aspiration. IMPRESSION: 1. Laryngeal penetration with thin and nectar consistencies. Refer to the full report by speech pathology for more detail. Electronically signed by: Martine Richards MD (04/28/2019 3:33 PM) [facility]
--- NOTE | 2019-04-28 17:30 | NUR ---
Videoswallow Evaluation completed. Please refer to full report in intervention section for additional details. Impressions: Mild-moderate oropharyngeal dysphagia w/ penetration of thin and nectar thick liquids that was typically ejected. No penetration was noted w/ honey thick liquids, puree or solids and no aspiration was observed during videoswallow evaluation. During this evaluation pt required significant cues for alertness and participation and pt was unable to follow cues to limit liquid trial sizes. Larger volumes of thin and nectar thick liquid were noted to have deeper penetration and while mostly ejected, on occasions ther was trace amounts not completely ejected. Therefore pt would benefit from honey thick liquids currently. It is possible that liquid consistency may be able to be advanced in the future when alertness and the ability to limit bolus sizes are no longer concerns. Pt was utilizing a sippy cup at prior setting and that may be of benefit to limit the size and rate of liquid presentation. Recommendations: Dyspahgia III diet w/ honey thick liquids. Dysphagia precautions. [employer] f/u for dysphagia.
[2019-04-28 19:16] VITALS: BP 139/64
[2019-04-28] MEDS: QUEtiapine 100 MG TABLET. PO SCH (20:27)
[2019-04-28] MEDS: QUEtiapine 25 MG TABLET. PO SCH (20:28)
[2019-04-28] MEDS: MIRTAZAPINE 15 MG TABLET PO SCH (20:29)
[2019-04-28 23:24] VITALS: BP 165/85
[2019-04-29] MEDS: IV 1/2 NORMAL SALINE 1,000 ML IV SCH (00:24)
[2019-04-29] MEDS: HEPARIN for IV BOLUS 10,000 UNIT/10 ML VIAL. IV PRN (00:26)
[2019-04-29 03:46] VITALS: BP 158/87
[2019-04-29 05:01] LABS: HEMOGLOBIN 11.8 g/dL (13.0-17.5); RED BLOOD COUNT 3.81 x10^6/uL (4.30-5.70); RED CELL DISTRIBUTION WIDTH 15.3 % (11.5-14.5); WHITE BLOOD COUNT 6.4 x10^3/uL (4.0-11.0)
[2019-04-29 07:00] VITALS: BP 201/93
[2019-04-29] MEDS: GABAPENTIN 300 MG CAPSULE. PO SCH ×2 (08:09→21:33)
[2019-04-29] MEDS: ACETAMINOPHEN 500 MG TABLET PO SCH ×4 (08:09→21:33)
[2019-04-29] MEDS: CARBIDOPA/LEVODOPA CR 25/100MG TABLET.SA. PO SCH ×2 (08:09→21:34)
[2019-04-29] MEDS: HYDROcodone/APAP 5/325MG 1 TAB TABLET PO SCH ×2 (08:09→21:33)
[2019-04-29] MEDS: POLYETHYLENE GLYCOL 3350 17 GM PACKET. PO SCH ×2 (08:10→21:35)
[2019-04-29] MEDS: LISINOPRIL 20 MG TABLET PO SCH ×2 (08:10→21:34)
--- NOTE | 2019-04-29 09:44 | PDOC ---
PROGRESS NOTES Assessment Problems Medical Problems: (1) Bilateral lower extremity pain Status: Acute (2) Bilateral pulmonary embolism Status: Acute (3) Schizophrenia Status: Acute Generalized weakness, I'm really not picking up on anything focal that would show a stroke. Certainly the pulmonary emboli play a role Dementia Diagnosis of Parkinson's disease Multiple psychiatric disorders. No acute stroke MRI cancelled and rescheduled, I received no notification of this Plan Okay to switch to oral anticoagulants and discharge back [facility] Continue current medications. Subjective He denies pain Objective Vital Signs Date Time Temp Pulse Resp B/P (MAP) Pulse Ox O2 Delivery O2 Flow Rate FiO2 04/29/19 08:10 73 201/93 04/29/19 08:09 Room Air 04/29/19 07:00 97.9 20 96 97.9 Intake and Output 04/29/19 07:00 Intake Total 240 ml Balance 240 ml Intake Oral 240 ml # Voids 4 PHYSICAL EXAM Alert. Oriented to person, he does not know date or location. PERRL. EOMI. CN: no focal findings. Muscle tone: [place] Muscle strength: 4/5 DTR: 2+ Plantar reflex: flexor Gait: not examined in bed. Sensory exam: no abnormal findings. No cerebellar signs elicited. There is decreased facial expression but no tremor or bradykinesia. Review of Relevant I have reviewed the following items luis miguel (where applicable) has been applied. Labs Laboratory Tests Test 04/27/19 12:56 04/27/19 21:45 04/28/19 04:40 04/28/19 10:45 White Blood Count 5.6 x10^3/uL (4.0-11.0) Red Blood Count 3.84 x10^6/uL (4.30-5.70) Hemoglobin 12.0 g/dL (13.0-17.5) 10.9 g/dL (13.0-17.5) Hematocrit 36.3 % (39.0-53.0) 33.2 % (39.0-53.0) Mean Corpuscular Volume 95 fL (79-100) Mean Corpuscular Hemoglobin 31 pg (25-35) Mean Corpuscular Hemoglobin Concent 33 g/dL (31-37) 33 g/dL (31-37) Red Cell Distribution Width 15.3 % (11.5-14.5) Platelet Count 222 x10^3/uL (140-400) Prothrombin Time 12.8 SEC (11.7-14.0) Prothromb Time International Ratio 1.0 (0.8-1.1) Activated Partial Thromboplast Time 32 SEC (24-38) Sodium Level 141 mmol/L (136-145) Potassium Level 3.9 mmol/L (3.5-5.1) Chloride Level 105 mmol/L (98-107) Carbon Dioxide Level 27 mmol/L (21-32) Anion Gap 9 (6-14) Blood Urea Nitrogen 18 mg/dL (8-26) Creatinine 1.1 mg/dL (0.7-1.3) Estimated GFR (Cockcroft-Gault) 66.6 Glucose Level 113 mg/dL (70-99) Calcium Level 9.0 mg/dL (8.5-10.1) Total Bilirubin 0.2 mg/dL (0.2-1.0) Direct Bilirubin 0.1 mg/dL (0.0-0.2) Aspartate Amino Transf (AST/SGOT) 11 U/L (15-37) Alanine Aminotransferase (ALT/SGPT) 7 U/L (16-63) Alkaline Phosphatase 62 U/L (46-116) Creatine Kinase 61 U/L (39-308) BG-The-F-Type Natriuretic Peptide 57 pg/mL (0-124) Total Protein 6.3 g/dL (6.4-8.2) Albumin 3.4 g/dL (3.4-5.0) Heparin Anti-Xa Act, Unfractionated 0.90 IU/mL (0.30-0.70) 0.78 IU/mL (0.30-0.70) 0.59 IU/mL (0.30-0.70) Test 04/28/19 17:20 04/28/19 22:55 04/29/19 04:55 04/29/19 05:50 Heparin Anti-Xa Act, Unfractionated 0.19 IU/mL (0.30-0.70) 0.23 IU/mL (0.30-0.70) > 1.10 IU/mL (0.30-0.70) White Blood Count 6.4 x10^3/uL (4.0-11.0) Red Blood Count 3.81 x10^6/uL (4.30-5.70) Hemoglobin 11.8 g/dL (13.0-17.5) Hematocrit 36.0 % (39.0-53.0) Mean Corpuscular Volume 95 fL (79-100) Mean Corpuscular Hemoglobin 31 pg (25-35) Mean Corpuscular Hemoglobin Concent 33 g/dL (31-37) Red Cell Distribution Width 15.3 % (11.5-14.5) Platelet Count 215 x10^3/uL (140-400) Laboratory Tests Test 04/28/19 10:45 04/28/19 17:20 04/28/19 22:55 04/29/19 04:55 Heparin Anti-Xa Act, Unfractionated 0.59 IU/mL (0.30-0.70) 0.19 IU/mL (0.30-0.70) 0.23 IU/mL (0.30-0.70) White Blood Count 6.4 x10^3/uL (4.0-11.0) Red Blood Count 3.81 x10^6/uL (4.30-5.70) Hemoglobin 11.8 g/dL (13.0-17.5) Hematocrit 36.0 % (39.0-53.0) Mean Corpuscular Volume 95 fL (79-100) Mean Corpuscular Hemoglobin 31 pg (25-35) Mean Corpuscular Hemoglobin Concent 33 g/dL (31-37) Red Cell Distribution Width 15.3 % (11.5-14.5) Platelet Count 215 x10^3/uL (140-400) Test 04/29/19 05:50 Heparin Anti-Xa Act, Unfractionated > 1.10 IU/mL (0.30-0.70) Medications Current Medications Iohexol (Omnipaque 350 Mg/ml) 75 ml 1X ONCE IV Last administered on 04/27/19at 13:15; Start 04/27/19 at 13:15; Stop 04/27/19 at 13:16; Status DC Fentanyl Citrate (Fentanyl 2ml Vial) 50 mcg 1X ONCE IVP ; Start 04/27/19 at 13:30; Stop 04/27/19 at 13:31; Status DC Info (CONTRAST GIVEN -- Rx MONITORING) 1 each PRN DAILY PRN MC SEE COMMENTS; Start 04/27/19 at 13:45; Stop 04/29/19 at 13:44 Enoxaparin Sodium (Lovenox 100mg Syringe) 100 mg 1X ONCE SQ ; Start 04/27/19 at 14:15; Stop 04/27/19 at 14:17; Status DC Heparin Sodium/ Dextrose 500 ml @ 30.08 mls/ hr CONT PRN IV SEE COMMENTS Last administered on 04/28/19at 09:42; Start 04/27/19 at 14:30 Heparin Sodium (Porcine) (Heparin Sodium) 2,800 unit PRN Q6HRS PRN IV FOR UFH LEVEL LESS THAN 0.2 Last administered on 04/29/19at 00:26; Start 04/27/19 at 14:30 Heparin Sodium (Porcine) (Heparin Sodium) 1,400 unit PRN Q6HRS PRN IV FOR UFH LEVEL 0.2 - 0.29; Start 04/27/19 at 14:30 Acetaminophen (Tylenol) 500 mg PRN Q6HRS PRN PO MILD PAIN / TEMP; Start 04/27/19 at 14:30 Acetaminophen/ Codeine Phosphate (Tylenol #3) 1 tab PRN Q6HRS PRN PO MODERATE PAIN; Start 04/27/19 at 14:30 Ondansetron HCl (Zofran) 4 mg PRN Q6HRS PRN IVP NAUSEA/VOMITING; Start 04/27/19 at 14:30 Morphine Sulfate (Morphine Sulfate) 2 mg PRN Q2HR PRN IV PAIN; Start 04/27/19 at 14:30 Sodium Chloride 1,000 ml @ 75 mls/hr [id number] IV Last administered on 04/29/19at 00:24; Start 04/27/19 at 14:30; Stop 04/29/19 at 08:32; Status DC Info (Anti-Coagulation Monitoring By Pharmacy) 1 each PRN DAILY PRN MC SEE COMMENTS; Start 04/27/19 at 14:30 Heparin Sodium (Porcine) (Heparin Sodium) 7,500 unit 1X ONCE IV Last administered on 04/27/19at 15:31; Start 04/27/19 at 15:15; Stop 04/27/19 at 15:16; Status DC Acetaminophen (Tylenol) 500 mg QID PO Last administered on 04/29/19at 08:09; Start 04/27/19 at 17:00 Acetaminophen/ Hydrocodone Bitart (Lortab 5/325) 1 tab BID PO Last administered on 04/29/19 08:09; Start 04/27/19 at 21:00 Lisinopril (Prinivil) 40 mg BID PO Last administered on 04/29/19 08:10; Start 04/27/19 at 19:00 Mirtazapine (Remeron) 15 mg QHS PO Last administered on 04/28/19 20:29; Start 04/27/19 at 21:00 Carbidopa/Levodopa (Sinemet Cr) 2 tab.sa BID PO Last administered on 04/29/19 08:09; Start 04/27/19 at 21:00 Gabapentin (Neurontin) 600 mg BID PO Last administered on 04/29/19 08:09; Start 04/27/19 at 21:00 Polyethylene Glycol (miraLAX PACKET) 17 gm BID PO Last administered on 04/29/19 08:10; Start 04/27/19 at 21:00 Quetiapine Fumarate (SEROquel) 200 mg QHS PO Last administered on 04/28/19 20:27; Start 04/27/19 at 21:00 Quetiapine Fumarate (SEROquel) 50 mg QHS PO Last administered on 04/28/19 20:28; Start 04/27/19 at 21:00 Sodium Chloride 1,000 ml @ 125 mls/hr 1X ONCE IV Last administered on 04/27/19 18:44; Start 04/27/19 at 17:15; Stop 04/28/19 at 01:14; Status DC Clonidine HCl (Catapres) 0.2 mg PRN Q8HRS PRN PO HYPERTENSION Last administered on 04/28/19 11:50; Start 04/27/19 at 20:15 Iohexol (Omnipaque 350 Mg/ml) 100 ml 1X ONCE IV Last administered on 04/28/19 08:45; Start 04/28/19 at 08:45; Stop 04/28/19 at 08:49; Status DC Info (CONTRAST GIVEN -- Rx MONITORING) 1 each PRN DAILY PRN MC SEE COMMENTS; Start 04/28/19 at 08:45; Stop 04/30/19 at 08:44 Barium Sulfate (Varibar Thin Liquid Apple) 148 gm 1X ONCE PO Last administered on 04/28/19at 14:50; Start 04/28/19 at 12:30; Stop 04/28/19 at 12:31; Status DC Active Scripts Active Reported Tylenol Extra Strength (Acetaminophen) 500 Mg Tablet 500 Mg PO QID Sinemet Cr 50-200 Tablet (Carbidopa/Levodopa) 1 Each Tablet.er 1 Tab PO BID Seroquel (Quetiapine Fumarate) 50 Mg Tablet 5 Tab PO QHS Remeron (Mirtazapine) 15 Mg Tablet 1 Tab PO QHS Polyethylene Glycol 3350 2,500 Gm Powder 17 Gm PO BID Lisinopril 40 Mg Tablet 1 Tab PO BID [place] 5-325 Tablet (Acetaminophen/Hydrocodone Bitart) 1 Each Tablet 1 Tab PO BID Gabapentin 600 Mg Tablet 600 Mg PO BID Vitals/I & O Vital Sign - Last 24 Hours 04/28/19 04/28/19 04/28/19 04/28/19 10:28 11:00 11:50 19:16 Temp 97.5 98.5 97.5 98.5 Pulse 66 62 86 Resp 20 18 B/P (MAP) 174/98 (123) 182/88 139/64 (89) Pulse Ox 93 98 96 O2 Delivery Room Air Room Air Room Air 04/28/19 04/28/19 04/28/19 04/29/19 20:00 20:22 23:24 03:46 Temp 98.5 98.0 98.5 98.0 Pulse 86 95 73 Resp 18 18 B/P (MAP) 139/64 165/85 (111) 158/87 (110) Pulse Ox 96 96 O2 Delivery Room Air Room Air Room Air 04/29/19 04/29/19 04/29/19 07:00 08:09 08:10 Temp 97.9 97.9 Pulse 79 73 Resp 20 B/P (MAP) 201/93 (129) 201/93 Pulse Ox 96 O2 Delivery Room Air Room Air Intake and Output 04/28/19 04/28/19 04/29/19 15:00 23:00 07:00 Intake Total 240 ml Balance 240 ml MIS GOTTI MD Apr 29, 2019 09:44
--- NOTE | 2019-04-29 09:53 | PDOC ---
PROGRESS NOTES Chief Complaint Chief Complaint Transient slurred speech Weak left LE > RT LE - NIH 20 at ER MUltiple bilateral PE - new - first episode NEw RT leg DVT 60% stenosis left ICA Severe stenosis Left M2, chronic Sever stenosis origin left vertebral Artery vs artifact\ 5 mm apical lung nodule in a non smoker [facility] resident full code History of Present Illness History of Present Illness Dw pulmo, quite impressive PE Was hypoxic BEd bound mostly in post acute medical [place] - will trya OAC but hih risk for falls, if that's the case, might just do IVC Video swallow SHOWS LARYNGEAL PENETRATION in both thin and thick liq - WHICH IS NOT GOOD HE is confused, worse than when i saw her at ER I tried to CONTACT [facility]LE[facility] LISTED ON FILE AND MAILBOX IS FULL [phone] I asked SW for assistance to get a hold of family to discuss: 1. Goals of care, feeding options if it gets worse/no improvement 2. COnsent for IVC filter if we recommend 3. COde status to start with PLAn: MRI brain ordered by neuro - came with stroke like sxs Echo for PE pending IM contemplating OAC to start later today - will dw pulmo Vitals Vitals Vital Signs Date Time Temp Pulse Resp B/P (MAP) Pulse Ox O2 Delivery O2 Flow Rate FiO2 04/29/19 08:10 73 201/93 04/29/19 08:09 Room Air 04/29/19 07:00 97.9 20 96 97.9 Physical Exam General: Alert, Oriented X3, Cooperative, No acute distress Lungs: Clear Abdomen: Normal bowel sounds, Soft, No tenderness, No hepatosplenomegaly, No masses Extremities: No clubbing, No cyanosis, No edema, Normal pulses, No ten derness/swelling Skin: No rashes, No breakdown, No significant lesion Labs LABS Laboratory Tests Test 04/28/19 10:45 04/28/19 17:20 04/28/19 22:55 04/29/19 04:55 Heparin Anti-Xa Act, Unfractionated 0.59 IU/mL (0.30-0.70) 0.19 IU/mL (0.30-0.70) 0.23 IU/mL (0.30-0.70) White Blood Count 6.4 x10^3/uL (4.0-11.0) Red Blood Count 3.81 x10^6/uL (4.30-5.70) Hemoglobin 11.8 g/dL (13.0-17.5) Hematocrit 36.0 % (39.0-53.0) Mean Corpuscular Volume 95 fL (79-100) Mean Corpuscular Hemoglobin 31 pg (25-35) Mean Corpuscular Hemoglobin Concent 33 g/dL (31-37) Red Cell Distribution Width 15.3 % (11.5-14.5) Platelet Count 215 x10^3/uL (140-400) Test 04/29/19 05:50 Heparin Anti-Xa Act, Unfractionated > 1.10 IU/mL (0.30-0.70) Review of Systems Review of Systems confused limited rOS Assessment and Plan Assessmemt and Plan Problems Medical Problems: (1) Bilateral lower extremity pain Status: Acute (2) Bilateral pulmonary embolism Status: Acute (3) Schizophrenia Status: Acute Comment Review of Relevant I have reviewed the following items luis miguel (where applicable) has been applied. Labs Laboratory Tests Test 04/27/19 12:56 04/27/19 21:45 04/28/19 04:40 04/28/19 10:45 White Blood Count 5.6 x10^3/uL (4.0-11.0) Red Blood Count 3.84 x10^6/uL (4.30-5.70) Hemoglobin 12.0 g/dL (13.0-17.5) 10.9 g/dL (13.0-17.5) Hematocrit 36.3 % (39.0-53.0) 33.2 % (39.0-53.0) Mean Corpuscular Volume 95 fL (79-100) Mean Corpuscular Hemoglobin 31 pg (25-35) Mean Corpuscular Hemoglobin Concent 33 g/dL (31-37) 33 g/dL (31-37) Red Cell Distribution Width 15.3 % (11.5-14.5) Platelet Count 222 x10^3/uL (140-400) Prothrombin Time 12.8 SEC (11.7-14.0) Prothromb Time International Ratio 1.0 (0.8-1.1) Activated Partial Thromboplast Time 32 SEC (24-38) Sodium Level 141 mmol/L (136-145) Potassium Level 3.9 mmol/L (3.5-5.1) Chloride Level 105 mmol/L (98-107) Carbon Dioxide Level 27 mmol/L (21-32) Anion Gap 9 (6-14) Blood Urea Nitrogen 18 mg/dL (8-26) Creatinine 1.1 mg/dL (0.7-1.3) Estimated GFR (Cockcroft-Gault) 66.6 Glucose Level 113 mg/dL (70-99) Calcium Level 9.0 mg/dL (8.5-10.1) Total Bilirubin 0.2 mg/dL (0.2-1.0) Direct Bilirubin 0.1 mg/dL (0.0-0.2) Aspartate Amino Transf (AST/SGOT) 11 U/L (15-37) Alanine Aminotransferase (ALT/SGPT) 7 U/L (16-63) Alkaline Phosphatase 62 U/L (46-116) Creatine Kinase 61 U/L (39-308) XV-Rix-T-Type Natriuretic Peptide 57 pg/mL (0-124) Total Protein 6.3 g/dL (6.4-8.2) Albumin 3.4 g/dL (3.4-5.0) Heparin Anti-Xa Act, Unfractionated 0.90 IU/mL (0.30-0.70) 0.78 IU/mL (0.30-0.70) 0.59 IU/mL (0.30-0.70) Test 04/28/19 17:20 04/28/19 22:55 04/29/19 04:55 04/29/19 05:50 Heparin Anti-Xa Act, Unfractionated 0.19 IU/mL (0.30-0.70) 0.23 IU/mL (0.30-0.70) > 1.10 IU/mL (0.30-0.70) White Blood Count 6.4 x10^3/uL (4.0-11.0) Red Blood Count 3.81 x10^6/uL (4.30-5.70) Hemoglobin 11.8 g/dL (13.0-17.5) Hematocrit 36.0 % (39.0-53.0) Mean Corpuscular Volume 95 fL (79-100) Mean Corpuscular Hemoglobin 31 pg (25-35) Mean Corpuscular Hemoglobin Concent 33 g/dL (31-37) Red Cell Distribution Width 15.3 % (11.5-14.5) Platelet Count 215 x10^3/uL (140-400) Laboratory Tests Test 04/28/19 10:45 04/28/19 17:20 04/28/19 22:55 04/29/19 04:55 Heparin Anti-Xa Act, Unfractionated 0.59 IU/mL (0.30-0.70) 0.19 IU/mL (0.30-0.70) 0.23 IU/mL (0.30-0.70) White Blood Count 6.4 x10^3/uL (4.0-11.0) Red Blood Count 3.81 x10^6/uL (4.30-5.70) Hemoglobin 11.8 g/dL (13.0-17.5) Hematocrit 36.0 % (39.0-53.0) Mean Corpuscular Volume 95 fL (79-100) Mean Corpuscular Hemoglobin 31 pg (25-35) Mean Corpuscular Hemoglobin Concent 33 g/dL (31-37) Red Cell Distribution Width 15.3 % (11.5-14.5) Platelet Count 215 x10^3/uL (140-400) Test 04/29/19 05:50 Heparin Anti-Xa Act, Unfractionated > 1.10 IU/mL (0.30-0.70) Medications Current Medications Iohexol (Omnipaque 350 Mg/ml) 75 ml 1X ONCE IV Last administered on 04/27/19at 13:15; Start 04/27/19 at 13:15; Stop 04/27/19 at 13:16; Status DC Fentanyl Citrate (Fentanyl 2ml Vial) 50 mcg 1X ONCE IVP ; Start 04/27/19 at 13:30; Stop 04/27/19 at 13:31; Status DC Info (CONTRAST GIVEN -- Rx MONITORING) 1 each PRN DAILY PRN MC SEE COMMENTS; Start 04/27/19 at 13:45; Stop 04/29/19 at 13:44 Enoxaparin Sodium (Lovenox 100mg Syringe) 100 mg 1X ONCE SQ ; Start 04/27/19 at 14:15; Stop 04/27/19 at 14:17; Status DC Heparin Sodium/ Dextrose 500 ml @ 30.08 mls/ hr CONT PRN IV SEE COMMENTS Last administered on 04/28/19at 09:42; Start 04/27/19 at 14:30 Heparin Sodium (Porcine) (Heparin Sodium) 2,800 unit PRN Q6HRS PRN IV FOR UFH LEVEL LESS THAN 0.2 Last administered on 04/29/19at 00:26; Start 04/27/19 at 14:30 Heparin Sodium (Porcine) (Heparin Sodium) 1,400 unit PRN Q6HRS PRN IV FOR UFH LEVEL 0.2 - 0.29; Start 04/27/19 at 14:30 Acetaminophen (Tylenol) 500 mg PRN Q6HRS PRN PO MILD PAIN / TEMP; Start 04/27/19 at 14:30 Acetaminophen/ Codeine Phosphate (Tylenol #3) 1 tab PRN Q6HRS PRN PO MODERATE PAIN; Start 04/27/19 at 14:30 Ondansetron HCl (Zofran) 4 mg PRN Q6HRS PRN IVP NAUSEA/VOMITING; Start 04/27/19 at 14:30 Morphine Sulfate (Morphine Sulfate) 2 mg PRN Q2HR PRN IV PAIN; Start 04/27/19 at 14:30 Sodium Chloride 1,000 ml @ 75 mls/hr [id number] IV Last administered on 04/29/19at 00:24; Start 04/27/19 at 14:30; Stop 04/29/19 at 08:32; Status DC Info (Anti-Coagulation Monitoring By Pharmacy) 1 each PRN DAILY PRN MC SEE COMMENTS; Start 04/27/19 at 14:30 Heparin Sodium (Porcine) (Heparin Sodium) 7,500 unit 1X ONCE IV Last administered on 04/27/19at 15:31; Start 04/27/19 at 15:15; Stop 04/27/19 at 15:16; Status DC Acetaminophen (Tylenol) 500 mg QID PO Last administered on 04/29/19 08:09; Start 04/27/19 at 17:00 Acetaminophen/ Hydrocodone Bitart (Lortab 5/325) 1 tab BID PO Last administered on 04/29/19 08:09; Start 04/27/19 at 21:00 Lisinopril (Prinivil) 40 mg BID PO Last administered on 04/29/19at 08:10; Start 04/27/19 at 19:00 Mirtazapine (Remeron) 15 mg QHS PO Last administered on 04/28/19 20:29; Start 04/27/19 at 21:00 Carbidopa/Levodopa (Sinemet Cr) 2 tab.sa BID PO Last administered on 04/29/19 08:09; Start 04/27/19 at 21:00 Gabapentin (Neurontin) 600 mg BID PO Last administered on 04/29/19 08:09; Start 04/27/19 at 21:00 Polyethylene Glycol (miraLAX PACKET) 17 gm BID PO Last administered on 04/29/19 08:10; Start 04/27/19 at 21:00 Quetiapine Fumarate (SEROquel) 200 mg QHS PO Last administered on 04/28/19 20:27; Start 04/27/19 at 21:00 Quetiapine Fumarate (SEROquel) 50 mg QHS PO Last administered on 04/28/19 20:28; Start 04/27/19 at 21:00 Sodium Chloride 1,000 ml @ 125 mls/hr 1X ONCE IV Last administered on 04/27/19 18:44; Start 04/27/19 at 17:15; Stop 04/28/19 at 01:14; Status DC Clonidine HCl (Catapres) 0.2 mg PRN Q8HRS PRN PO HYPERTENSION Last administered on 04/28/19 11:50; Start 04/27/19 at 20:15 Iohexol (Omnipaque 350 Mg/ml) 100 ml 1X ONCE IV Last administered on 04/28/19 08:45; Start 04/28/19 at 08:45; Stop 04/28/19 at 08:49; Status DC Info (CONTRAST GIVEN -- Rx MONITORING) 1 each PRN DAILY PRN MC SEE COMMENTS; Start 04/28/19 at 08:45; Stop 04/30/19 at 08:44 Barium Sulfate (Varibar Thin Liquid Apple) 148 gm 1X ONCE PO Last administered on 04/28/19at 14:50; Start 04/28/19 at 12:30; Stop 04/28/19 at 12:31; Status DC Active Scripts Active Reported Tylenol Extra Strength (Acetaminophen) 500 Mg Tablet 500 Mg PO QID Sinemet Cr 50-200 Tablet (Carbidopa/Levodopa) 1 Each Tablet.er 1 Tab PO BID Seroquel (Quetiapine Fumarate) 50 Mg Tablet 5 Tab PO QHS Remeron (Mirtazapine) 15 Mg Tablet 1 Tab PO QHS Polyethylene Glycol 3350 2,500 Gm Powder 17 Gm PO BID Lisinopril 40 Mg Tablet 1 Tab PO BID [place] 5-325 Tablet (Acetaminophen/Hydrocodone Bitart) 1 Each Tablet 1 Tab PO BID Gabapentin 600 Mg Tablet 600 Mg PO BID Vitals/I & O Vital Sign - Last 24 Hours 04/28/19 04/28/19 04/28/19 04/28/19 10:28 11:00 11:50 19:16 Temp 97.5 98.5 97.5 98.5 Pulse 66 62 86 Resp 20 18 B/P (MAP) 174/98 (123) 182/88 139/64 (89) Pulse Ox 93 98 96 O2 Delivery Room Air Room Air Room Air 04/28/19 04/28/19 04/28/19 04/29/19 20:00 20:22 23:24 03:46 Temp 98.5 98.0 98.5 98.0 Pulse 86 95 73 Resp 18 18 B/P (MAP) 139/64 165/85 (111) 158/87 (110) Pulse Ox 96 96 O2 Delivery Room Air Room Air Room Air 04/29/19 04/29/19 04/29/19 07:00 08:09 08:10 Temp 97.9 97.9 Pulse 79 73 Resp 20 B/P (MAP) 201/93 (129) 201/93 Pulse Ox 96 O2 Delivery Room Air Room Air Intake and Output 04/28/19 04/28/19 04/29/19 15:00 23:00 07:00 Intake Total 240 ml Balance 240 ml KIERAN WALSH MD Apr 29, 2019 09:53
--- NOTE | 2019-04-29 10:01 | PDOC ---
PULMONARY PROGRESS NOTES Subjective PT CONFUSED Vitals Vital Signs Date Time Temp Pulse Resp B/P (MAP) Pulse Ox O2 Delivery O2 Flow Rate FiO2 04/29/19 08:10 73 201/93 04/29/19 08:09 Room Air 04/29/19 07:00 97.9 20 96 97.9 ROS: No Nausea, No Chest Pain, No Abdominal Pain, No Increase Cough General: Alert Lungs: Clear Cardiovascular: S1, S2 Abdomen: Soft Neuro Exam: Alert Extremities: No Edema Skin: Warm Labs Laboratory Tests Test 04/27/19 12:56 04/27/19 21:45 04/28/19 04:40 04/28/19 10:45 White Blood Count 5.6 x10^3/uL (4.0-11.0) Red Blood Count 3.84 x10^6/uL (4.30-5.70) Hemoglobin 12.0 g/dL (13.0-17.5) 10.9 g/dL (13.0-17.5) Hematocrit 36.3 % (39.0-53.0) 33.2 % (39.0-53.0) Mean Corpuscular Volume 95 fL (79-100) Mean Corpuscular Hemoglobin 31 pg (25-35) Mean Corpuscular Hemoglobin Concent 33 g/dL (31-37) 33 g/dL (31-37) Red Cell Distribution Width 15.3 % (11.5-14.5) Platelet Count 222 x10^3/uL (140-400) Prothrombin Time 12.8 SEC (11.7-14.0) Prothromb Time International Ratio 1.0 (0.8-1.1) Activated Partial Thromboplast Time 32 SEC (24-38) Sodium Level 141 mmol/L (136-145) Potassium Level 3.9 mmol/L (3.5-5.1) Chloride Level 105 mmol/L (98-107) Carbon Dioxide Level 27 mmol/L (21-32) Anion Gap 9 (6-14) Blood Urea Nitrogen 18 mg/dL (8-26) Creatinine 1.1 mg/dL (0.7-1.3) Estimated GFR (Cockcroft-Gault) 66.6 Glucose Level 113 mg/dL (70-99) Calcium Level 9.0 mg/dL (8.5-10.1) Total Bilirubin 0.2 mg/dL (0.2-1.0) Direct Bilirubin 0.1 mg/dL (0.0-0.2) Aspartate Amino Transf (AST/SGOT) 11 U/L (15-37) Alanine Aminotransferase (ALT/SGPT) 7 U/L (16-63) Alkaline Phosphatase 62 U/L (46-116) Creatine Kinase 61 U/L (39-308) [id number]-[id number]-Type Natriuretic Peptide 57 pg/mL (0-124) Total Protein 6.3 g/dL (6.4-8.2) Albumin 3.4 g/dL (3.4-5.0) Heparin Anti-Xa Act, Unfractionated 0.90 IU/mL (0.30-0.70) 0.78 IU/mL (0.30-0.70) 0.59 IU/mL (0.30-0.70) Test 04/28/19 17:20 04/28/19 22:55 04/29/19 04:55 04/29/19 05:50 Heparin Anti-Xa Act, Unfractionated 0.19 IU/mL (0.30-0.70) 0.23 IU/mL (0.30-0.70) > 1.10 IU/mL (0.30-0.70) White Blood Count 6.4 x10^3/uL (4.0-11.0) Red Blood Count 3.81 x10^6/uL (4.30-5.70) Hemoglobin 11.8 g/dL (13.0-17.5) Hematocrit 36.0 % (39.0-53.0) Mean Corpuscular Volume 95 fL (79-100) Mean Corpuscular Hemoglobin 31 pg (25-35) Mean Corpuscular Hemoglobin Concent 33 g/dL (31-37) Red Cell Distribution Width 15.3 % (11.5-14.5) Platelet Count 215 x10^3/uL (140-400) Laboratory Tests Test 04/28/19 10:45 04/28/19 17:20 04/28/19 22:55 04/29/19 04:55 Heparin Anti-Xa Act, Unfractionated 0.59 IU/mL (0.30-0.70) 0.19 IU/mL (0.30-0.70) 0.23 IU/mL (0.30-0.70) White Blood Count 6.4 x10^3/uL (4.0-11.0) Red Blood Count 3.81 x10^6/uL (4.30-5.70) Hemoglobin 11.8 g/dL (13.0-17.5) Hematocrit 36.0 % (39.0-53.0) Mean Corpuscular Volume 95 fL (79-100) Mean Corpuscular Hemoglobin 31 pg (25-35) Mean Corpuscular Hemoglobin Concent 33 g/dL (31-37) Red Cell Distribution Width 15.3 % (11.5-14.5) Platelet Count 215 x10^3/uL (140-400) Test 04/29/19 05:50 Heparin Anti-Xa Act, Unfractionated > 1.10 IU/mL (0.30-0.70) Medications Active Scripts Medications Dose Route/Sig Max Daily Dose Days Date Category Tylenol Extra Strength (Acetaminophen) 500 Mg Tablet 500 Mg PO QID 04/27/19 Reported Sinemet Cr 50-200 Tablet (Carbidopa/Levodopa) 1 Each Tablet.er 1 Tab PO BID 04/27/19 Reported Seroquel (Quetiapine Fumarate) 50 Mg Tablet 5 Tab PO QHS 04/27/19 Reported Remeron (Mirtazapine) 15 Mg Tablet 1 Tab PO QHS 04/27/19 Reported Polyethylene Glycol 3350 2,500 Gm Powder 17 Gm PO BID 04/27/19 Reported Lisinopril 40 Mg Tablet 1 Tab PO BID 04/27/19 Reported [place] 5-325 Tablet (Acetaminophen/Hydrocodone Bitart) 1 Each Tablet 1 Tab PO BID 04/27/19 Reported Gabapentin 600 Mg Tablet 600 Mg PO BID 04/27/19 Reported Impression . IMPRESSION: 1. Pulmonary embolism. 2. Deep venous thrombosis of right popliteal vein. 3. Hypoxemia upon arrival to the Emergency Department. 4. Multiple other comorbidities as listed above. 5. Hypertension. 6. Chronic obstructive pulmonary disease. 7. Depression. 8. Anemia. 9. Schizoaffective disorder. 10. History of parkinsonism. Plan . NOT MORE CARLI TODAY NO RESP DISTRESS CT CHEST REVIEWED D/W DR AMES CONTINUE ANTICOUGULATION MARINA MCCLENDON MD Apr 29, 2019 10:01
--- NOTE | 2019-04-29 10:16 | PDOC ---
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
[2019-04-29 11:00] VITALS: BP 145/77
--- NOTE | 2019-04-29 13:21 | CARD ---
MR#: [id number] Date of Study: 04/29/2019 Ordering Physician: KIERAN WALSH, Referring Physician: KIERAN WALSH, Tech: Koki Cardona APPROVED REPORT EXAM: Two-dimensional and M-mode echocardiogram with Doppler and color Doppler. Other Information Quality : FairHR: 77bpm Technically limited study due to body habitus. INDICATION Pulmonary Embolism 2D DIMENSIONS Left Atrium(2D)3.7 (1.6-4.0cm)IVSd1.3 (0.7-1.1cm) Aortic Root(2D)3.3 (2.0-3.7cm)LVDd4.8 (3.9-5.9cm) LVOT Diameter2.2 (1.8-2.4cm)PWd1.0 (0.7-1.1cm) LVDs4.0 (2.5-4.0cm)FS (%) 17.2 % SV38.8 ml Aortic Valve AoV Peak Tremaine.124.4cm/sAoV VTI25.4cm AO Peak GR.6.2mmHgLVOT VTI 19.85cm AO Mean GR.4mmHg Mitral Valve MV E Ubiqwnfi13.6cm/sMV DECEL [id number] MV A Fwzwwlfd68.0cm/sE/A Ratio0.8 TDI Lateral E' P. V7.72cm/sMedial E' P. V7.21cm/s E/Lateral E'9.0E/Medial E'9.7 Tricuspid Valve TR P. Puqgzdke007bi/sRAP LETUAFTI5raWb TR Peak Gr.82dvDfWKIY65gzDk LEFT VENTRICLE The left ventricle is normal size. There is mild to moderate concentric left ventricular hypertrophy. The left ventricular systolic function is normal. The Ejection Fraction is 55%. There is normal LV s egmental wall motion. Transmitral Doppler flow pattern is Grade I-abnormal relaxation pattern. RIGHT VENTRICLE The right ventricle is normal size. There is normal right ventricular wall thickness. The right ventr icular systolic function is normal. ATRIA The left atrium size is normal. The right atrium size is normal. The interatrial septum is intact wit h no evidence for an atrial septal defect or patent foramen ovale as noted on 2-D or Doppler imaging. AORTIC VALVE The aortic valve is thickened but opens well. Doppler and Color Flow revealed no significant aortic r egurgitation. There is no significant aortic valvular stenosis. MITRAL VALVE The mitral valve is normal in structure and function. There is no evidence of mitral valve prolapse. There is no mitral valve stenosis. Doppler and Color-flow revealed trace mitral regurgitation. TRICUSPID VALVE The tricuspid valve is not well visualized. Doppler and Color Flow revealed trace tricuspid regurgita tion with an estimated PAP of 26 mmHg. There is no tricuspid valve stenosis. PULMONIC VALVE The pulmonic valve is not well visualized. Doppler and Color Flow revealed no pulmonic valvular regur gitation. GREAT VESSELS The aortic root is normal in size. The IVC is normal in size and collapses >50% with inspiration. PERICARDIAL EFFUSION There is no evidence of significant pericardial effusion. Critical Notification Critical Value: No <Conclusion> The left ventricular systolic function is normal. The Ejection Fraction is 55%. There is normal LV segmental wall motion. Transmitral Doppler flow pattern is Grade I-abnormal relaxation pattern. Trace mitral regurgitation. Trace tricuspid regurgitation with an estimated PAP of 26 mmHg. There is no evidence of significant pericardial effusion. Signed by : Warren Hoffman, Electronically Approved : 04/29/2019 13:20:38
--- NOTE | 2019-04-29 14:44 | RAD ---
EXAMINATION: Magnetic resonance imaging (MRI) of the brain and brainstem without contrast 04/29/2019 8:00 AM HISTORY: Weakness TECHNIQUE: Multiplanar multi-weighted MRI of the brain and brainstem was performed without intravenous contrast using the general brain protocol. COMPARISON: None available. FINDINGS: Evaluation is degraded by motion artifact. The scalp and calvarium are normal. The superior sagittal sinus demonstrates normal venous flow. The corpus callosum is normal in shape and signal intensity. The posterior fossa is unremarkable. The pituitary and sella are normal. The brainstem and craniocervical junction are unremarkable. Remote lacunar infarct involving the right durant radiata. Diffusion weighted images reveal no hyperintensities to suggest acute cerebral infarction. The susceptibility weighted sequences reveal no evidence of acute or chronic hemorrhage. Ventricles, sulci and basal cisterns are prominent compatible with moderate general cerebral White mass with more prominent volume loss involving the biparietal lobes. There is ex vacuo dilatation of the temporal horn of left lateral ventricle with volume loss involving the left temporal lobe. Encephalomalacia of the left hippocampus and medial left temporal lobe noted. Remote ischemic changes are noted involving the right parietal lobe. There are T2/FLAIR signal hyperintense foci in the periventricular and subcortical white matter most suggestive of mild chronic small vessel ischemic changes. Mild mucosal thickening of the ethmoid air cells. The visualized portions of the mastoids are unremarkable. The orbits appear normal with exception of bilateral lens replacement. Normal flow voids are demonstrated in the carotid arteries and basilar artery. IMPRESSION: Motion artifact limits evaluation. 1. No evidence for acute or subacute ischemia. 2. Encephalomalacia involving the left hippocampus and medial left temporal lobe, possibly from prior infarct. There is ex vacuo dilatation of the temporal horn of left lateral ventricle. Remote ischemic changes are noted involving the right parietal lobe. 3. Moderate generalized cerebral volume loss with more focal volume loss involving the biparietal lobes. 4. Remote lacunar infarct in the right durant radiata. Electronically signed by: Mirta Bolton MD (04/29/2019 2:40 PM) [id number]
--- NOTE | 2019-04-29 14:52 | NUR ---
Heparin gtt was held [id number] while patient was getting MRI of brain, restarted at 1405, next UFH ordered for 1999, there was no change with last result.
[2019-04-29 15:00] VITALS: BP 167/81
--- NOTE | 2019-04-29 19:27 | NUR ---
Patient had Ativan before MRI brain & has been sleeping most of day after.
[2019-04-29 19:36] VITALS: BP 194/83
[2019-04-29] MEDS: cloNIDine HCL 0.2 MG TABLET PO PRN (19:48)
[2019-04-29] MEDS: MIRTAZAPINE 15 MG TABLET PO SCH (21:33)
[2019-04-29] MEDS: QUEtiapine 100 MG TABLET. PO SCH (21:34)
[2019-04-29] MEDS: QUEtiapine 25 MG TABLET. PO SCH (21:34)
[2019-04-29] MEDS: HEPARIN 25,000UTS/500ML PREMIX 500 ML IV PRN (22:28)
[2019-04-29 22:47] VITALS: BP 112/58
[2019-04-30 03:33] VITALS: BP 156/93
[2019-04-30] MEDS: HEPARIN for IV BOLUS 10,000 UNIT/10 ML VIAL. IV PRN (03:44)
--- NOTE | 2019-04-30 03:54 | NUR ---
Pt arrived to room per cart at 0047 to room 20, pt assisted to bed with min assistance. Poc explained assessment completed vs obtained and stable call light in reach will resume care.
[2019-04-30 07:00] VITALS: BP 157/92
[2019-04-30] MEDS ORDERED: APIX5TAB PO (08:21)
[2019-04-30] MEDS ORDERED: HYDR-3164 PO (08:21)
--- NOTE | 2019-04-30 08:22 | SNU/HH DC ---
DISCHARGE ORDERS DISCHARGE INFORMATION: DISCHARGE DATE: Apr 30, 2019 FINAL DIAGNOSIS Problems Medical Problems: (1) Bilateral lower extremity pain Status: Acute (2) Bilateral pulmonary embolism Status: Acute (3) Schizophrenia Status: Acute CODE STATUS: Code Status: DNR/DNI CUSTODIAL: SNF STAY <30 DAYS: Yes HOSPICE: HOSPICE: No HOSPICE EVAL & TREAT: Yes LTAC: ADMIT TO LTAC: No POST DISCHARGE ORDERS: DIET AFTER DISCHARGE: dysphagia 3 with nectar thick CHECKS AFTER DISCHARGE: CHECKS AFTER DISCHARGE: Check blood press - daily, Check blood sugar, ac/hs FOLLOW-UP: PHYSICIAN FOLLOW-UP: can be so cnfused, no stroke, Dysphagia 3 diet now BUT might need to downgr TREATMENT/EQUIPMENT ORDERS: RESPIRATORY EQUIPMENT NEEDED: Oxygen Physical Therapy For: Evalulation/Treatment Occupational Therapy For: Evaluation/Treatment Speech Language Pathology For: Evaluation/Treatment DISCHARGE MEDICATIONS: Home Meds Active Scripts Apixaban (ELIQUIS) 5 Mg Tablet, 10 MG PO BID for pe for 10 Days, #40 TAB Prov:KIERAN WALSH MD 04/30/19 Hydrocodone/Apap 5-325 (NORCO 5-325 TABLET) 1 Each Tablet, 1 TAB PO BID for chronic pain , #30 TAB Prov:KIERAN WALSH MD 04/30/19 Reported Medications Acetaminophen (TYLENOL EXTRA STRENGTH) 500 Mg Tablet, 500 MG PO QID for chronic pain , TAB 04/27/19 Carbidopa/Levodopa (SINEMET CR 50-200 TABLET) 1 Each Tablet.er, 1 TAB PO BID for parkinsons, TAB 04/27/19 Quetiapine Fumarate (SEROQUEL) 50 Mg Tablet, 5 TAB PO QHS for schizo, #30 TAB 2 Refills 04/27/19 Mirtazapine (REMERON) 15 Mg Tablet, 1 TAB PO QHS for depressive disorder, #30 TAB 1 Refill 04/27/19 Polyethylene Glycol 3350 (POLYETHYLENE GLYCOL 3350) 2,500 Gm Powder, 17 GM PO BID for constipation, #255 GM 0 Refills 04/27/19 Lisinopril (LISINOPRIL) 40 Mg Tablet, 1 TAB PO BID for HTN, #30 TAB 5 Refills 04/27/19 Gabapentin (GABAPENTIN) 600 Mg Tablet, 600 MG PO BID for NEUROGENIC PAIN, TAB 04/27/19 KIERAN WALSH MD Apr 30, 2019 08:22
--- NOTE | 2019-04-30 08:25 | PDOC ---
PULMONARY PROGRESS NOTES Subjective PT CONFUSED Vitals Vital Signs Date Time Temp Pulse Resp B/P (MAP) Pulse Ox O2 Delivery O2 Flow Rate FiO2 04/30/19 07:00 97.8 75 18 157/92 (113) 96 Room Air 97.8 ROS: No Nausea, No Chest Pain, No Abdominal Pain, No Increase Cough General: Alert Lungs: Clear Cardiovascular: S1, S2 Abdomen: Soft Neuro Exam: Alert Extremities: No Edema Skin: Warm Labs Laboratory Tests Test 04/28/19 10:45 04/28/19 17:20 04/28/19 22:55 04/29/19 04:55 Heparin Anti-Xa Act, Unfractionated 0.59 IU/mL (0.30-0.70) 0.19 IU/mL (0.30-0.70) 0.23 IU/mL (0.30-0.70) White Blood Count 6.4 x10^3/uL (4.0-11.0) Red Blood Count 3.81 x10^6/uL (4.30-5.70) Hemoglobin 11.8 g/dL (13.0-17.5) Hematocrit 36.0 % (39.0-53.0) Mean Corpuscular Volume 95 fL (79-100) Mean Corpuscular Hemoglobin 31 pg (25-35) Mean Corpuscular Hemoglobin Concent 33 g/dL (31-37) Red Cell Distribution Width 15.3 % (11.5-14.5) Platelet Count 215 x10^3/uL (140-400) Test 04/29/19 05:50 04/29/19 12:12 04/29/19 20:15 04/30/19 02:40 Heparin Anti-Xa Act, Unfractionated > 1.10 IU/mL (0.30-0.70) 0.59 IU/mL (0.30-0.70) 0.45 IU/mL (0.30-0.70) 0.14 IU/mL (0.30-0.70) Laboratory Tests Test 04/29/19 12:12 04/29/19 20:15 04/30/19 02:40 Heparin Anti-Xa Act, Unfractionated 0.59 IU/mL (0.30-0.70) 0.45 IU/mL (0.30-0.70) 0.14 IU/mL (0.30-0.70) Medications Active Scripts Medications Dose Route/Sig Max Daily Dose Days Date Category Tylenol Extra Strength (Acetaminophen) 500 Mg Tablet 500 Mg PO QID 04/27/19 Reported Sinemet Cr 50-200 Tablet (Carbidopa/Levodopa) 1 Each Tablet.er 1 Tab PO BID 04/27/19 Reported Seroquel (Quetiapine Fumarate) 50 Mg Tablet 5 Tab PO QHS 04/27/19 Reported Remeron (Mirtazapine) 15 Mg Tablet 1 Tab PO QHS 04/27/19 Reported Polyethylene Glycol 3350 2,500 Gm Powder 17 Gm PO BID 04/27/19 Reported Lisinopril 40 Mg Tablet 1 Tab PO BID 04/27/19 Reported [place] 5-325 Tablet (Acetaminophen/Hydrocodone Bitart) 1 Each Tablet 1 Tab PO BID 04/27/19 Reported Gabapentin 600 Mg Tablet 600 Mg PO BID 04/27/19 Reported Impression . IMPRESSION: 1. Pulmonary embolism. 2. Deep venous thrombosis of right popliteal vein. 3. Hypoxemia upon arrival to the Emergency Department. 4. Multiple other comorbidities as listed above. 5. Hypertension. 6. Chronic obstructive pulmonary disease. 7. Depression. 8. Anemia. 9. Schizoaffective disorder. 10. History of parkinsonism. Plan . CT CHEST REVIEWED D/W DR HUI GILES TO D/C CONTINUE ANTICOUGULATION MARINA MCCLENDON MD Apr 30, 2019 08:25
[2019-04-30] MEDS ORDERED: APIXABAN 5 MG TABLET. PO SCH ×2 (09:00)
--- NOTE | 2019-04-30 09:03 | PDOC ---
PROGRESS NOTES Assessment Problems Medical Problems: (1) Bilateral lower extremity pain Status: Acute (2) Bilateral pulmonary embolism Status: Acute (3) Schizophrenia Status: Acute Generalized weakness, no acute stroke PE Left hippocampus and medial left temporal lobe, right durant radiata, prior infarcts Dementia Diagnosis of Parkinson's disease Multiple psychiatric disorders. Plan Apixaban started Okay for discharge Subjective no complaints Objective Vital Signs Date Time Temp Pulse Resp B/P (MAP) Pulse Ox O2 Delivery O2 Flow Rate FiO2 04/30/19 07:00 97.8 75 18 157/92 (113) 96 Room Air 97.8 Intake and Output 04/30/19 07:00 Intake Total 350 ml Balance 350 ml Intake Oral 350 ml # Voids 5 PHYSICAL EXAM Sleepy. Oriented to person, he does not know date or location. PERRL. EOMI. CN: no focal findings. Muscle tone: [place] Muscle strength: 4/5 DTR: 2+ Plantar reflex: flexor Gait: not examined in bed. Sensory exam: no abnormal findings. No cerebellar signs elicited. There is decreased facial expression but no tremor or bradykinesia. Review of Relevant I have reviewed the following items luis miguel (where applicable) has been applied. Labs Laboratory Tests Test 04/28/19 10:45 04/28/19 17:20 04/28/19 22:55 04/29/19 04:55 Heparin Anti-Xa Act, Unfractionated 0.59 IU/mL (0.30-0.70) 0.19 IU/mL (0.30-0.70) 0.23 IU/mL (0.30-0.70) White Blood Count 6.4 x10^3/uL (4.0-11.0) Red Blood Count 3.81 x10^6/uL (4.30-5.70) Hemoglobin 11.8 g/dL (13.0-17.5) Hematocrit 36.0 % (39.0-53.0) Mean Corpuscular Volume 95 fL (79-100) Mean Corpuscular Hemoglobin 31 pg (25-35) Mean Corpuscular Hemoglobin Concent 33 g/dL (31-37) Red Cell Distribution Width 15.3 % (11.5-14.5) Platelet Count 215 x10^3/uL (140-400) Test 04/29/19 05:50 04/29/19 12:12 04/29/19 20:15 04/30/19 02:40 Heparin Anti-Xa Act, Unfractionated > 1.10 IU/mL (0.30-0.70) 0.59 IU/mL (0.30-0.70) 0.45 IU/mL (0.30-0.70) 0.14 IU/mL (0.30-0.70) Laboratory Tests Test 04/29/19 12:12 04/29/19 20:15 04/30/19 02:40 Heparin Anti-Xa Act, Unfractionated 0.59 IU/mL (0.30-0.70) 0.45 IU/mL (0.30-0.70) 0.14 IU/mL (0.30-0.70) Medications Current Medications Iohexol (Omnipaque 350 Mg/ml) 75 ml 1X ONCE IV Last administered on 04/27/19at 13:15; Start 04/27/19 at 13:15; Stop 04/27/19 at 13:16; Status DC Fentanyl Citrate (Fentanyl 2ml Vial) 50 mcg 1X ONCE IVP ; Start 04/27/19 at 13:30; Stop 04/27/19 at 13:31; Status DC Info (CONTRAST GIVEN -- Rx MONITORING) 1 each PRN DAILY PRN MC SEE COMMENTS; Start 04/27/19 at 13:45; Stop 04/29/19 at 13:44; Status DC Enoxaparin Sodium (Lovenox 100mg Syringe) 100 mg 1X ONCE SQ ; Start 04/27/19 at 14:15; Stop 04/27/19 at 14:17; Status DC Heparin Sodium/ Dextrose 500 ml @ 30.08 mls/ hr CONT PRN IV SEE COMMENTS Last administered on 04/29/19at 22:28; Start 04/27/19 at 14:30; Stop 04/30/19 at 08:18; Status DC Heparin Sodium (Porcine) (Heparin Sodium) 2,800 unit PRN Q6HRS PRN IV FOR UFH LEVEL LESS THAN 0.2 Last administered on 04/30/19at 03:44; Start 04/27/19 at 14:30; Stop 04/30/19 at 08:18; Status DC Heparin Sodium (Porcine) (Heparin Sodium) 1,400 unit PRN Q6HRS PRN IV FOR UFH LEVEL 0.2 - 0.29; Start 04/27/19 at 14:30; Stop 04/30/19 at 08:18; Status DC Acetaminophen (Tylenol) 500 mg PRN Q6HRS PRN PO MILD PAIN / TEMP; Start 04/27/19 at 14:30 Acetaminophen/ Codeine Phosphate (Tylenol #3) 1 tab PRN Q6HRS PRN PO MODERATE PAIN; Start 04/27/19 at 14:30 Ondansetron HCl (Zofran) 4 mg PRN Q6HRS PRN IVP NAUSEA/VOMITING; Start 04/27/19 at 14:30 Morphine Sulfate (Morphine Sulfate) 2 mg PRN Q2HR PRN IV PAIN; Start 04/27/19 at 14:30 Sodium Chloride 1,000 ml @ 75 mls/hr [id number] IV Last administered on 04/29/19at 00:24; Start 04/27/19 at 14:30; Stop 04/29/19 at 08:32; Status DC Info (Anti-Coagulation Monitoring By Pharmacy) 1 each PRN DAILY PRN MC SEE COMMENTS Last administered on 04/29/19at 10:37; Start 04/27/19 at 14:30 Heparin Sodium (Porcine) (Heparin Sodium) 7,500 unit 1X ONCE IV Last administered on 04/27/19at 15:31; Start 04/27/19 at 15:15; Stop 04/27/19 at 15:16; Status DC Acetaminophen (Tylenol) 500 mg QID PO Last administered on 04/29/19at 21:33; Start 04/27/19 at 17:00 Acetaminophen/ Hydrocodone Bitart (Lortab 5/325) 1 tab BID PO Last administered on 04/29/19at 21:33; Start 04/27/19 at 21:00 Lisinopril (Prinivil) 40 mg BID PO Last administered on 04/29/19at 21:34; Start 04/27/19 at 19:00 Mirtazapine (Remeron) 15 mg QHS PO Last administered on 04/29/19at 21:33; Start 04/27/19 at 21:00 Carbidopa/Levodopa (Sinemet Cr) 2 tab.sa BID PO Last administered on 04/29/19at 21:34; Start 04/27/19 at 21:00 Gabapentin (Neurontin) 600 mg BID PO Last administered on 04/29/19at 21:33; Start 04/27/19 at 21:00 Polyethylene Glycol (miraLAX PACKET) 17 gm BID PO Last administered on 04/29/19at 21:35; Start 04/27/19 at 21:00 Quetiapine Fumarate (SEROquel) 200 mg QHS PO Last administered on 04/29/19at 21:34; Start 04/27/19 at 21:00 Quetiapine Fumarate (SEROquel) 50 mg QHS PO Last administered on 04/29/19 21:34; Start 04/27/19 at 21:00 Sodium Chloride 1,000 ml @ 125 mls/hr 1X ONCE IV Last administered on 04/27/19at 18:44; Start 04/27/19 at 17:15; Stop 04/28/19 at 01:14; Status DC Clonidine HCl (Catapres) 0.2 mg PRN Q8HRS PRN PO HYPERTENSION Last administered on 04/29/19at 19:48; Start 04/27/19 at 20:15 Iohexol (Omnipaque 350 Mg/ml) 100 ml 1X ONCE IV Last administered on 04/28/19a t 08:45; Start 04/28/19 at 08:45; Stop 04/28/19 at 08:49; Status DC Info (CONTRAST GIVEN -- Rx MONITORING) 1 each PRN DAILY PRN MC SEE COMMENTS; Start 04/28/19 at 08:45; Stop 04/30/19 at 08:44; Status DC Barium Sulfate (Varibar Thin Liquid Apple) 148 gm 1X ONCE PO Last administered on 04/28/19at 14:50; Start 04/28/19 at 12:30; Stop 04/28/19 at 12:31; Status DC Lorazepam (Ativan Inj) 2 mg 1X ONCE IVP Last administered on 04/29/19at 12:53; Start 04/29/19 at 12:00; Stop 04/29/19 at 12:01; Status DC Apixaban (Eliquis) 10 mg BID PO ; Start 04/30/19 at 09:00; Stop 05/06/19 at 21:01 Apixaban (Eliquis) 10 mg BID PO ; Start 04/30/19 at 09:00; Status UNV Apixaban (Eliquis) 5 mg BID PO ; Start 05/07/19 at 09:00 Active Scripts Active Eliquis (Apixaban) 5 Mg Tablet 10 Mg PO BID 10 Days [place] 5-325 Tablet (Acetaminophen/Hydrocodone Bitart) 1 Each Tablet 1 Tab PO BID Reported Tylenol Extra Strength (Acetaminophen) 500 Mg Tablet 500 Mg PO QID Sinemet Cr 50-200 Tablet (Carbidopa/Levodopa) 1 Each Tablet.er 1 Tab PO BID Seroquel (Quetiapine Fumarate) 50 Mg Tablet 5 Tab PO QHS Remeron (Mirtazapine) 15 Mg Tablet 1 Tab PO QHS Polyethylene Glycol 3350 2,500 Gm Powder 17 Gm PO BID Lisinopril 40 Mg Tablet 1 Tab PO BID Gabapentin 600 Mg Tablet 600 Mg PO BID Vitals/I & O Vital Sign - Last 24 Hours 04/29/19 04/29/19 04/29/19 04/29/19 09:09 11:00 15:00 19:36 Temp 98.2 98.4 98.1 98.2 98.4 98.1 Pulse 80 88 83 Resp 18 20 18 B/P (MAP) 145/77 (99) 167/81 (109) 194/83 (120) Pulse Ox 97 95 93 O2 Delivery Room Air Room Air Room Air Room Air 04/29/19 04/29/19 04/29/19 04/29/19 19:40 19:48 21:33 21:34 Pulse 83 83 Resp 18 B/P (MAP) 194/83 194/83 Pulse Ox 96 O2 Delivery Room Air Room Air 04/29/19 04/29/19 04/30/19 04/30/19 22:33 22:47 03:33 07:00 Temp 98.5 97.8 97.8 98.5 97.8 97.8 Pulse 115 76 75 Resp 18 18 16 18 B/P (MAP) 112/58 (76) 156/93 (114) 157/92 (113) Pulse Ox 92 94 94 96 O2 Delivery Room Air Room Air Room Air Room Air Intake and Output 04/29/19 04/29/19 04/30/19 15:00 23:00 07:00 Intake Total 290 ml 60 ml 0 ml Balance 290 ml 60 ml 0 ml Images Magnetic resonance imaging (MRI) of the brain and brainstem without contrast 04/29/2019 8:00 AM HISTORY: Weakness TECHNIQUE: Multiplanar multi-weighted MRI of the brain and brainstem was performed without intravenous contrast using the general brain protocol. COMPARISON: None available. FINDINGS: Evaluation is degraded by motion artifact. The scalp and calvarium are normal. The superior sagittal sinus demonstrates normal venous flow. The corpus callosum is normal in shape and signal intensity. The posterior fossa is unremarkable. The pituitary and sella are normal. The brainstem and craniocervical junction are unremarkable. Remote lacunar infarct involving the right durant radiata. Diffusion weighted images reveal no hyperintensities to suggest acute cerebral infarction. The susceptibility weighted sequences reveal no evidence of acute or chronic hemorrhage. Ventricles, sulci and basal cisterns are prominent compatible with moderate general cerebral White mass with more prominent volume loss involving the biparietal lobes. There is ex vacuo dilatation of the temporal horn of left lateral ventricle with volume loss involving the left temporal lobe. Encephalomalacia of the left hippocampus and medial left temporal lobe noted. Remote ischemic changes are noted involving the right parietal lobe. There are T2/FLAIR signal hyperintense foci in the periventricular and subcortical white matter most suggestive of mild chronic small vessel ischemic changes. Mild mucosal thickening of the ethmoid air cells. The visualized portions of the mastoids are unremarkable. The orbits appear normal with exception of bilateral lens replacement. Normal flow voids are demonstrated in the carotid arteries and basilar artery. IMPRESSION: Motion artifact limits evaluation. 1. No evidence for acute or subacute ischemia. 2. Encephalomalacia involving the left hippocampus and medial left temporal lobe, possibly from prior infarct. There is ex vacuo dilatation of the temporal horn of left lateral ventricle. Remote ischemic changes are noted involving the right parietal lobe. 3. Moderate generalized cerebral volume loss with more focal volume loss involving the biparietal lobes. 4. Remote lacunar infarct in the right durant radiata. MIS GOTTI MD Apr 30, 2019 09:03
[2019-04-30] MEDS: CARBIDOPA/LEVODOPA CR 25/100MG TABLET.SA. PO SCH (10:27)
[2019-04-30] MEDS: GABAPENTIN 300 MG CAPSULE. PO SCH (10:28)
[2019-04-30] MEDS: ACETAMINOPHEN 500 MG TABLET PO SCH ×2 (10:28→13:46)
[2019-04-30] MEDS: LISINOPRIL 20 MG TABLET PO SCH (10:29)
[2019-04-30] MEDS: HYDROcodone/APAP 5/325MG 1 TAB TABLET PO SCH (10:29)
[2019-04-30] MEDS: POLYETHYLENE GLYCOL 3350 17 GM PACKET. PO SCH (10:30)
[2019-04-30 11:00] VITALS: BP 179/85
--- NOTE | 2019-04-30 11:39 | PDOC3 ---
Discharge Summary Visit Information Date of Admission: Apr 27, 2019 Date of Discharge: Apr 30, 2019 Admitting Diagnosis Comment: Transient slurred speech NO ACUTE CVA ON MRI Weak left LE > RT LE - NIH 20 at ER MUltiple bilateral PE - new - first episode NOW ON ELIQUS NEw RT leg DVT 60% stenosis left ICA Severe stenosis Left M2, chronic Sever stenosis origin left vertebral Artery vs artifact\ 5 mm apical lung nodule in a non smoker SNU resident full code [place] R ISK Final Diagnosis Problems Medical Problems: (1) Bilateral lower extremity pain Status: Acute (2) Bilateral pulmonary embolism Status: Acute (3) Schizophrenia Status: Acute Brief Hospital Course Allergies Allergies Coded Allergies Type Severity Reaction Last Updated Verified No Known Drug Allergies 02/04/19 No Vital Signs Vital Signs Date Time Temp Pulse Resp B/P (MAP) Pulse Ox O2 Delivery O2 Flow Rate FiO2 04/30/19 11:00 98.1 89 18 179/85 (116) 95 Room Air 98.1 Lab Results Laboratory Tests Test 04/28/19 17:20 04/28/19 22:55 04/29/19 04:55 04/29/19 05:50 Heparin Anti-Xa Act, Unfractionated 0.19 IU/mL (0.30-0.70) 0.23 IU/mL (0.30-0.70) > 1.10 IU/mL (0.30-0.70) White Blood Count 6.4 x10^3/uL (4.0-11.0) Red Blood Count 3.81 x10^6/uL (4.30-5.70) Hemoglobin 11.8 g/dL (13.0-17.5) Hematocrit 36.0 % (39.0-53.0) Mean Corpuscular Volume 95 fL (79-100) Mean Corpuscular Hemoglobin 31 pg (25-35) Mean Corpuscular Hemoglobin Concent 33 g/dL (31-37) Red Cell Distribution Width 15.3 % (11.5-14.5) Platelet Count 215 x10^3/uL (140-400) Test 04/29/19 12:12 04/29/19 20:15 04/30/19 02:40 04/30/19 09:50 Heparin Anti-Xa Act, Unfractionated 0.59 IU/mL (0.30-0.70) 0.45 IU/mL (0.30-0.70) 0.14 IU/mL (0.30-0.70) 0.84 IU/mL (0.30-0.70) Ammonia < 10 mcmol/L (-) Laboratory Tests Test 04/29/19 12:12 04/29/19 20:15 04/30/19 02:40 04/30/19 09:50 Heparin Anti-Xa Act, Unfractionated 0.59 IU/mL (0.30-0.70) 0.45 IU/mL (0.30-0.70) 0.14 IU/mL (0.30-0.70) 0.84 IU/mL (0.30-0.70) Ammonia < 10 mcmol/L (34) Brief Hospital Course Mr. Maria is a 69 old white male who came for post acute part of SNU, HE came with SOA and low sats ER 80s and found to have new bialteral PE,. ECho done, see results, HEparin gtt was given few days and now on eliquis, HAd some slurring speech and RT sided weakness, NIH 20, comanaged with neuro but MRI neg for acute CVA just some old encephalomalaxia etc, Course remarkable for dysphagia needing MAP COMPILER eval and video swallow and recommended dysphagai 3 with nectar thick but might even be needing to downgrade to dysphagia 2, DNR as dw son over phone SNU DNR MEds on chARt [place] RISK , STARTED ON ELIQUIOS FOR NEW BILATERAL PE AND DVT BUt if falls freq at home - ELIQUIS might need to be stopped DPOA Did not prefer any aggressive means, ie IVC filter, - which is quite reasonable too dw DPOA< RN and SW and pulmo Discharge Information Condition at Discharge: Improved Disposition/Orders: Other (snu) Scheduled Acetaminophen (Tylenol Extra Strength) 500 Mg Tablet, 500 MG PO QID for chronic pain , (Reported) Entered as Reported by: SILAS HERNANDEZ on 04/27/19 1606 Last Taken: Unknown Dose on Unknown Date & Time Last Action: Continued on 04/27/19 1621 by KIERAN WALSH Apixaban (Eliquis) 5 Mg Tablet, 10 MG PO BID for pe for 10 Days, #40 Prescribed by: KIERAN WALSH on 04/30/19 0821 Carbidopa/Levodopa (Sinemet Cr 50-200 Tablet) 1 Each Tablet.er, 1 TAB PO BID for parkinsons, (Reported) Entered as Reported by: SILAS HERNANDEZ on 04/27/191605 Last Taken: Unknown Dose on Unknown Date & Time Last Action: Converted on 04/27/191620 by KIERAN WALSH Gabapentin (Gabapentin) 600 Mg Tablet, 600 MG PO BID for NEUROGENIC PAIN, (Reported) Entered as Reported by: SILAS HERNANDEZ on 04/27/191605 Last Taken: Unknown Dose on Unknown Date & Time Last Action: Converted on 04/27/191620 by KIERAN WALSH Hydrocodone/Apap 5-325 ([place] 5-325 Tablet) 1 Each Tablet, 1 TAB PO BID for chronic pain , #30 Prescribed by: KIERAN WALSH on 04/30/19 0821 Lisinopril (Lisinopril) 40 Mg Tablet, 1 TAB PO BID for HTN, #30 Ref 5 (Reported) Entered as Reported by: SILAS HERNANDEZ on 04/27/191605 Last Taken: Unknown Dose on Unknown Date & Time Last Action: Continued on 04/27/191620 by KIERAN WALSH Mirtazapine (Remeron) 15 Mg Tablet, 1 TAB PO QHS for depressive disorder, #30 Ref 1 (Reported) Entered as Reported by: SILAS HERNANDEZ on 04/27/19 160 Last Taken: Unknown Dose on Unknown Date & Time Last Action: Continued on 04/27/191620 by KIERAN WALSH Polyethylene Glycol 3350 (Polyethylene Glycol 3350) 2,500 Gm Powder, 17 GM PO BID for constipation, #255 Ref 0 (Reported) Entered as Reported by: SILAS HERNANDEZ on 04/27/191605 Last Taken: Unknown Dose on Unknown Date & Time Last Action: Converted on 04/27/191620 by KIERAN WALSH Quetiapine Fumarate (Seroquel) 50 Mg Tablet, 5 TAB PO QHS for schizo, #30 Ref 2 (Reported) Entered as Reported by: SILAS HERNANDEZ on 04/27/19 160 Last Taken: Unknown Dose on Unknown Date & Time Last Action: Converted on 04/27/191620 by KIERAN LEBLANC MD Apr 30, 2019 11:39
--- NOTE | 2019-04-30 11:56 | NUR ---
SS following up with discharge planning. Discharge orders received for return to [facility] in [place], ; fax [phone]. SS phoned and faxed clinical and discharge orders to [facility]. Pt will discharge today and return to [facility] at 1300 via stretcher transport. [facility] to provide transport. Pt, pt's RN, and pt's brother notified.
[2019-04-30] MEDS ORDERED: CLON0.2T PO (12:03)
--- NOTE | 2019-04-30 14:05 | NUR ---
Discharge Note: [facility] [address] [place] Discharge instructions and discharge home medications reviewed with Other facility and a copy given. All questions have been answered and understanding verbalized. The following instructions and handouts were given: PE/DVT info, discharge info. Discontinued lines and drains: Peripheral IV intact. [facility] with medical transport via stretcher at 1405.
[2019-05-07] MEDS ORDERED: APIXABAN 5 MG TABLET. PO SCH (09:00)
== END 2019-04-30 14:05 | disposition home or self-care (01) | DRG 299 ==
LOC: ER 12:42 → 2 NORTH 13:03
PROVIDERS: ADMIT Internal Medicine; ATTEND Internal Medicine
DX: I82.431 Acute embolism and thrombosis of right popliteal vein (principal); I26.99 Other pulmonary embolism without acute cor pulmonale; D64.9 Anemia, unspecified; E78.00 Pure hypercholesterolemia, unspecified; E78.5 Hyperlipidemia, unspecified; F02.80 Dementia in other diseases classified elsewhere, unspecified severity, without behavioral disturbance, psychotic disturbance, mood disturbance, and anxiety; F25.9 Schizoaffective disorder, unspecified; F32.9 Major depressive disorder, single episode, unspecified; F43.10 Post-traumatic stress disorder, unspecified; G20 Parkinson's disease; G89.29 Other chronic pain; G93.89 Other specified disorders of brain; I10 Essential (primary) hypertension; J44.9 Chronic obstructive pulmonary disease, unspecified; K59.00 Constipation, unspecified; R09.02 Hypoxemia; R29.6 Repeated falls; Z66 Do not resuscitate; Z74.01 Bed confinement status; Z79.01 Long term (current) use of anticoagulants; Z79.899 Other long term (current) drug therapy; Z86.73 Personal history of transient ischemic attack (TIA), and cerebral infarction without residual deficits; Z91.81 History of falling; F41.9 Anxiety disorder, unspecified; M19.90 Unspecified osteoarthritis, unspecified site
CPT/HCPCS: 36415; 70450; 70496; 70498; 70551; 71045; 71275; 74230; 80048; 80076; 82140; 82550; 83880; 85014; 85018; 85027; 85520; 85610; 85730; 93005; 93306; 93970; J1644; J2060; Q9967; 92526; 92610; 92611; 99291-25; G0378